=== PATIENT | male | born 1950 | race Caucasian/White ===

== ENCOUNTER 2016-10-21 14:16 | Emergency (ER) | payer BC ==
--- NOTE | 2016-10-21 16:11 | UC ---
Respiratory Complaint HPI - HPI Summary HPI Summary: 66 yo male with productive cough x 1 week myalgias and malaise/fatigue now with bilateral eye redness and lids matted shut in AMs for 1-2 days no f/c no cp, sob - History of Current Complaint Chief Complaint: UCGeneralIllness Stated Complaint: COUGH,SINUSES Time Seen by Provider: 10/21/16 15:57 Hx Obtained From: Patient Onset/Duration: Gradual Onset, Lasting Weeks Timing: Constant Severity Initially: Mild Severity Currently: Moderate Pain Intensity: 2 Pain Scale Used: 0-10 Numeric Character: Cough: Productive Aggravating Factors: Exertion Associated Signs And Symptoms: Positive: Nasal Congestion - Allergies/Home Medications Allergies/Adverse Reactions: Allergies Allergy/AdvReac Type Severity Reaction Status Date / Time No Known Allergies Allergy Verified 10/21/16 14:47 Home Medications: Home Medications Aspirin [Aspirin 81 MG TAB] 81 mg PO DAILY 10/21/16 [History Confirmed 10/21/16] Ferrous Fumarate [Iron] 18 mg PO DAILY 10/21/16 [History Confirmed 10/21/16] Nadolol TAB* [Corgard TAB*] 40 mg PO DAILY 10/21/16 [History Confirmed 10/21/16] Omeprazole CAP* [Prilosec CAP* 20 MG] 20 mg PO DAILY 10/21/16 [History Confirmed 10/21/16] PMH/Surg Hx/FS Hx/Imm Hx Previously Healthy: Yes Cardiovascular History: Other - dysrrhymia Other Cardiovascular History: dysrhymia Respiratory History: Bronchitis - Surgical History Surgical History: Yes Surgery Procedure, Year, and Place: 6 cardiac cath. 5 shoulder surgies - Social History Alcohol Use: Occasionally Substance Use Type: None Smoking Status (MU): Never Smoked Tobacco Review of Systems Constitutional: Fatigue Skin: Negative Eyes: Drainage, Eye Redness ENT: Nasal Discharge Respiratory: Cough Cardiovascular: Negative Gastrointestinal: Negative Genitourinary: Negative Motor: Negative Neurovascular: Negative Musculoskeletal: Myalgia Neurological: Negative Psychological: Negative All Other Systems Reviewed And Are Negative: Yes Physical Exam Triage Information Reviewed: Yes Appearance: Well-Appearing, No Pain Distress, Well-Nourished Vital Signs: Initial Vital Signs Temp 97.3 F 10/21/16 14:42 Pulse 82 10/21/16 14:42 Resp 18 10/21/16 14:42 BP 126/83 10/21/16 14:42 Pulse Ox 95 10/21/16 14:42 Eyes: Positive: Conjunctiva Inflamed, Discharge ENT: Positive: Hearing grossly normal, Nasal drainage. Negative: Nasal congestion, Tonsillar swelling, Tonsillar exudate, Trismus, Muffled/hoarse voice Neck: Positive: Supple, Nontender, No Lymphadenopathy Respiratory: Positive: Lungs clear, Normal breath sounds, No respiratory distress, No accessory muscle use Cardiovascular: Positive: RRR, No Murmur Musculoskeletal: Positive: ROM Intact, No Edema Neurological: Positive: Alert Psychological Exam: Normal Skin Exam: Normal UC Diagnostic Evaluation - Laboratory O2 Sat by Pulse Oximetry: 95 - low normal/not hypoxic - Radiology Xray Interpretation: No Acute Changes Radiology Interpretation Completed By: Radiologist Respiratory Course/Dx - Differential Dx/Diagnosis Provider Diagnoses: acute bronchitis. conjunctivitis (bilateral) Discharge - Discharge Plan Condition: Stable Disposition: HOME Prescriptions: Amoxicillin (*) [Amoxicillin 875 MG (*)] 875 mg PO BID #20 tab Polymyx/Trimethoprim OPTH* [Polytrim OPHTH*] 1 - 2 drop BOTH EYES QID #1 btl Patient Education Materials: Acute Bronchitis (ED), Conjunctivitis (ED) Referrals: Estela SOMMER,Cristino Jaimes [Primary Care Provider] - 4 Days (if not better)
--- NOTE | 2016-10-21 16:45 | RAD ---
INDICATION: Productive cough x1 week COMPARISON: None TECHNIQUE: PA and lateral views of the chest were obtained. FINDINGS: A cardiac device is seen overlying the medial mid-level left chest. The heart and mediastinum are normal in size and contour. The lungs are grossly clear. There is no evidence of large pleural effusion. Visualized bones are normal for the patient's age. There is no radiographic evidence of free air beneath the diaphragm IMPRESSION: No radiographic evidence of acute cardiopulmonary disease.
[2016-10-21 17:01] VITALS: BP 135/96
== END 2016-10-21 17:01 | disposition home or self-care (01) ==
LOC: UCCORT 14:16
DX: J20.9 Acute bronchitis, unspecified (principal); H10.33 Unspecified acute conjunctivitis, bilateral; I49.9 Cardiac arrhythmia, unspecified
CPT/HCPCS: 71020; 99212; G0463

== ENCOUNTER 2017-02-25 12:52 | Emergency (ER) | payer BC ==
[2017-02-25 14:26] VITALS: BP 133/98
--- NOTE | 2017-02-25 15:15 | UC ---
Skin Complaint HPI - HPI Summary HPI Summary: Patient has red, swollen left great toe, small area of draniage around the cuticle - History of Current Complaint Chief Complaint: UCLowerExtremity Time Seen by Provider: 02/25/17 14:58 Stated Complaint: RIGHT BIG TOE PAIN Hx Obtained From: Patient Onset/Duration: Sudden Onset, Lasting Days Skin Exposure Onset/Duration: Days Ago Timing: Constant Onset Severity: Mild Current Severity: Mild Location: Discrete - great toe - Allergy/Home Medications Allergies/Adverse Reactions: Allergies Allergy/AdvReac Type Severity Reaction Status Date / Time No Known Allergies Allergy Verified 02/25/17 14:19 Home Medications: Home Medications Naproxen TAB* [Naprosyn 250 mg TAB*] 1 tab DAILY 02/25/17 [History Confirmed ] Review of Systems Constitutional: Negative Skin: Other - redness Eyes: Negative ENT: Negative Respiratory: Negative Cardiovascular: Negative Gastrointestinal: Negative Genitourinary: Negative Motor: Negative Neurovascular: Negative Musculoskeletal: Negative Neurological: Negative Psychological: Negative Is Patient Immunocompromised?: No All Other Systems Reviewed And Are Negative: Yes PMH/Surg Hx/FS Hx/Imm Hx Previously Healthy: Yes - Surgical History Surgical History: Yes Surgery Procedure, Year, and Place: 6 cardiac cath. 5 shoulder surgies - Family History Known Family History: Positive: Cardiac Disease, Hypertension - Social History Alcohol Use: Daily Alcohol Amount: GLASS OF WINE W/ DINNER Substance Use Type: None Smoking Status (MU): Never Smoked Tobacco - Immunization History Most Recent Influenza Vaccination: 2016 Most Recent Pneumonia Vaccination: 2013 Physical Exam Triage Information Reviewed: Yes Appearance: Well-Appearing, Well-Nourished, Pain Distress Vital Signs: Initial Vital Signs Temp 97.4 F 02/25/17 14:20 Pulse 70 02/25/17 14:20 Resp 16 02/25/17 14:20 BP 133/98 02/25/17 14:20 Pulse Ox 98 02/25/17 14:20 Vital Signs Reviewed: Yes Eye Exam: Normal ENT Exam: Normal Dental Exam: Normal Neck exam: Normal Respiratory Exam: Normal Cardiovascular Exam: Normal Abdominal Exam: Normal Bowel Sounds: Positive: Present Musculoskeletal Exam: Normal Neurological Exam: Normal Psychological Exam: Normal Skin: Positive: Other - mild eyrthem of the right great toe down to the MTP joint Course/Dx - Course Course Of Treatment: hx obtained, exam performed ,med reviewed, treated for cellulitis, - Differential Diagnoses - Skin Complaint Differential Diagnoses: Abscess, Cellulitis - Diagnoses Provider Diagnoses: cellulitis of right great toe Discharge - Discharge Plan Condition: Stable Disposition: HOME Prescriptions: Cephalexin CAP* [Keflex CAP*] 500 mg PO BID #14 cap Patient Education Materials: Cellulitis (ED) Additional Instructions: 1. Take the medication as prescribed. 2. Warm foot soaks daily 3. Follow up with terrazzo helper if not improving due to the ingrown nail
== END 2017-02-25 15:25 | disposition home or self-care (01) ==
LOC: UCCORT 12:52
DX: L03.031 Cellulitis of right toe (principal)
CPT/HCPCS: 99212; G0463

== ENCOUNTER 2017-05-18 15:50 | Emergency (ER) | payer BC ==
[2017-05-18 17:18] VITALS: BP 148/101
--- NOTE | 2017-05-18 17:35 | UC ---
Respiratory Complaint HPI - HPI Summary HPI Summary: Pt c/o generalized malaise, cough X 3 weeks. - History of Current Complaint Chief Complaint: UCRespiratory Stated Complaint: COUGH/FLU LIKE Time Seen by Provider: 05/18/17 17:08 Hx Obtained From: Patient Onset/Duration: Gradual Onset, Lasting Weeks, Still Present, Worse Since - onset Timing: Constant Severity Initially: Mild Severity Currently: Moderate Character: Cough: Nonproductive Aggravating Factors: Exertion, Recumbent Position Alleviating Factors: Nothing Associated Signs And Symptoms: Positive: Chills - Risk Factors Pulmonary Embolism Risk Factors: Negative Cardiac Risk Factors: Hypertension Pseudomonas Risk Factors: Negative Tuberculosis Risk Factors: Negative - Allergies/Home Medications Allergies/Adverse Reactions: Allergies Allergy/AdvReac Type Severity Reaction Status Date / Time No Known Allergies Allergy Verified 05/18/17 17:09 Home Medications: Home Medications Nortriptyline CAP* [Nortriptylline CAP*] 1 cap BEDTIME 05/18/17 [History Confirmed 05/18/17] PMH/Surg Hx/FS Hx/Imm Hx Previously Healthy: Yes Cardiovascular History: Hypertension - Surgical History Surgical History: Yes Surgery Procedure, Year, and Place: 6 cardiac cath. 5 shoulder (4xrotator cuff) - Family History Known Family History: Positive: Cardiac Disease, Hypertension - Social History Occupation: Employed Full-time Lives: With Family Alcohol Use: Daily Alcohol Amount: GLASS OF WINE W/ DINNER Substance Use Type: None Smoking Status (MU): Never Smoked Tobacco Have You Smoked in the Last Year: No - Immunization History Most Recent Influenza Vaccination: 2017 Most Recent Pneumonia Vaccination: 2014 Review of Systems Constitutional: Chills, Fatigue Skin: Negative Eyes: Negative ENT: Negative Respiratory: Cough Cardiovascular: Negative Gastrointestinal: Negative Genitourinary: Negative Motor: Negative Neurovascular: Negative Musculoskeletal: Negative Neurological: Negative Psychological: Negative Is Patient Immunocompromised?: No All Other Systems Reviewed And Are Negative: Yes Physical Exam Triage Information Reviewed: Yes Appearance: Ill-Appearing Vital Signs: Initial Vital Signs Temp 99.2 F 05/18/17 17:12 Pulse 79 05/18/17 17:12 Resp 28 05/18/17 17:12 BP 148/101 05/18/17 17:12 Pulse Ox 99 05/18/17 17:12 Vital Signs Reviewed: Yes Eye Exam: Normal ENT Exam: Normal Dental Exam: Normal Neck exam: Normal Respiratory Exam: Other Respiratory: Positive: Decreased breath sounds Cardiovascular Exam: Normal Musculoskeletal Exam: Normal Neurological Exam: Normal Psychological Exam: Normal Skin Exam: Normal UC Diagnostic Evaluation - Laboratory O2 Sat by Pulse Oximetry: 99 Respiratory Course/Dx - Differential Dx/Diagnosis Differential Diagnosis/HQI/PQRI: Bronchitis, Influenza Provider Diagnoses: Bronchitis Discharge - Discharge Plan Condition: Stable Disposition: HOME Prescriptions: Benzonatate CAP* [Tessalon 100 MG CAP*] 100 mg PO Q8H PRN #30 cap PRN Reason: Cough DOXYcycline CAP(*) [DOXYcycline 100MG CAP(*)] 100 mg PO Q12H #20 cap methylPREDNISolone TAB* [Medrol TAB*] 4 - 8 mg PO .SEE JUAREZ #1 juarez Patient Education Materials: Acute Bronchitis (ED) Referrals: Estela SOMMER,Cristino Jaimes [Primary Care Provider] - If Needed
== END 2017-05-18 17:46 | disposition home or self-care (01) ==
LOC: UCCORT 15:50
DX: J40 Bronchitis, not specified as acute or chronic (principal); I10 Essential (primary) hypertension
CPT/HCPCS: 87502; 99212; G0463

== ENCOUNTER 2017-06-21 08:39 | Emergency (ER) | payer BC ==
--- OUTSIDE RECORDS SUMMARY | 2017-06-21 08:56 | XMS REPORT ---
:1950 External Reference #:[id number] Author Organization [employer] Address [address] [address] Phone [phone] Care Team Providers Name Role Phone Arabella Palmer H., MD Primary Care Physician Unavailable Payers Type Date Identification Numbers Payment Provider Subscriber Health Maintenance Policy Number: Medicare Blue Ppo [facility] (O) [id number] Group Number: [id number] [address] PayID: [id number] PRAVEENA Orozco [address] Problems Description No Information Family History Date Family Member(s) Problem(s) Comments General Cancer Social History Type Date Description Comments Marital Status Lives With Spouse Occupation [employer] Cigarette Use Never Smoked Cigarettes ETOH Use Occasionally consumes wine Smoking Patient has never smoked Recreational Drug Use Denies Drug Use Daily Caffeine Consumes on average 1 cup of regular coffee per day Exercise Type/Frequency Exercises sporadically Allergies, Adverse Reactions, Alerts Date Description Reaction Status Severity Comments 05/25/2013 NKDA active Medications Medication Date Status Form Strength Qnty SIG Indications Ordering Provider Right Knee 02/28/ Active unload 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 [facility] [place], Fabiola Varus DJD compartment Omeprazole / Active Capsules 10mg 1 po qd Unknown 0000 DR Aspirin Ec Low / Active Tablets DR 81mg 1 by mouth Unknown Dose 0000 every day Iron 00/00/ Active Tablets every day Unknown 0000 Nadolol / Active Tablets 20mg Al-Mudamg 0000 Shae evans MD Nortriptyline / Active Capsules 25mg Unknown HCL 0000 Cephalexin / Active Capsules 500mg Unknown 0000 Naproxen Sodium / Hx Tablets 220mg 1-2 po bid Unknown 0000 - prn 2014 Flecainide / Hx Tablets 100mg 1 po bid Unknown Acetate - 2014 Medications Administered in Office Medication Date Status Form Strength Qnty SIG Indications Ordering Provider Celestone 3 mg Administered Injection Barrie Brooke and 3mg 017 MD [place] Depomedrol Administered Injection Wale 40MG 016 [place] Gonsalez Depomedrol Administered Injection Wale 80MG 015 Mich Gonsalez Depomedrol Administered Injection Wale 80MG 014 [place] Gonsalez Depomedrol Administered Injection Wale 80MG 014 [place] Gonsalez Vital Signs Date Vital Result Comment 05/31/2017 Height 70 inches 5'10" Weight 196.00 lb Heart Rate 72 /min BP Systolic Sitting 124 mmHg BP Diastolic Sitting 82 mmHg Respiratory Rate 12 /min Pain Level 4 BMI (Body Mass Index) 28.1 kg/m2 02/28/2017 Height 70 inches 5'10" Weight 195.00 lb Heart Rate 74 /min BP Systolic 116 mmHg BP Diastolic 80 mmHg Respiratory Rate 16 /min Pain Level 0 when not using BMI (Body Mass Index) 28.0 kg/m2 01/28/2015 Weight 190.00 lb Heart Rate 76 /min BP Systolic Sitting 122 mmHg BP Diastolic Sitting 80 mmHg 02/19/2014 Height 70 inches 5'10" Weight 190.00 lb Heart Rate 80 /min BP Systolic Sitting 110 mmHg BP Diastolic Sitting 72 mmHg BMI (Body Mass Index) 27.3 kg/m2 06/12/2013 Height 70 inches 5'10" Weight 195.00 lb BP Systolic 126 mmHg BP Diastolic 84 mmHg BMI (Body Mass Index) 28.0 kg/m2 05/25/2013 Height 70 inches 5'10" Weight 195.00 lb Heart Rate 69 /min BP Systolic 136 mmHg BP Diastolic 80 mmHg BMI (Body Mass Index) 28.0 kg/m2 Results Description No Information Procedures Date CPT Code Description Status 02/28/2017 95268 Xray Knee 3 Views Completed 02/28/2017 Inject/Drain Joint/Bursa Major Completed 10/14/2015 Inject/Drain Joint/Bursa Major Completed 01/28/2015 Inject/Drain Joint/Bursa Major Completed 02/19/2014 Inject/Drain Joint/Bursa Major Completed 05/25/2013 38113 Rad Exam; Ankle Comp Completed 05/25/2013 00934 Rad Exam; Both Knees, Standing Ap Completed 05/25/2013 Inject/Drain Joint/Bursa Major Completed Encounters Type Date Location Provider CPT E/M Dx Office Visit 05/31/2017 [facility] [place] [address] M17.11 11:15a [facility] Office Visit 02/28/2017 [facility] [place] [address] M17.11 1:30p [facility] M25.561 Office Visit 06/12/2013 9:45a [facility] [address] 726.72 [facility] [place] 715.96 Office Visit 05/25/2013 10:45a [facility], [address] 715.96 [facility] [place] 726.72 Plan of Care Future Appointment(s):06/21/2017 8:30 am - Barrie Arnold MD at [facility]/30/2018 - [facility], MDM17.11 Unilateral primary osteoarthritis, right kneeFollow up:Follow up: 3-4 weeks for injection
--- OUTSIDE RECORDS SUMMARY | 2017-06-21 08:56 | XMS REPORT ---
:1950 External Reference #:[id number] Author Organization [employer] Address [address] [address] Phone [phone] Care Team Providers Name Role Phone Arabella Palmer H., MD Primary Care Physician Unavailable Payers Type Date Identification Numbers Payment Provider Subscriber Health Maintenance Policy Number: Medicare Blue Ppo Garth Gaviria [facility] Organization (HMO) [id number] Group Number: [id number] [address] PayID: [id number] [place] [address] Problems Description No Information Family History Date [...] Knee 02/28/ Active unload 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[employer] [place], Fabiola Varus SHAYLA compartment Omeprazole / Active Capsules 10mg 1 po qd Unknown 0000 DR Aspirin Ec Low / Active Tablets DR 81mg 1 by mouth Unknown Dose 0000 every day Iron 00/00/ Active Tablets every day Unknown 0000 Nadolol / Active Tablets 20mg 1 tab by Al-Mudamg 0000 mouth daily Shae evans MD Nortriptyline / Active Capsules 25mg one tab by Unknown HCL 0000 mouth at night Naproxen Sodium / Hx Tablets 220mg 1-2 po bid Unknown 0000 - prn 2014 Flecainide / Hx Tablets 100mg 1 po bid Unknown Acetate - 2014 Cephalexin / Hx Capsules 500mg Unknown 0000 - 2017 Celestone 3 mg 00// Active Injection Barrie Brooke and 3mg 0000 MD [place] Medications Administered in Office Medication Date Status Form Strength Qnty SIG Indications Ordering Provider Celestone 3 mg Administered Injection Barrie M and 3mg 017 MD [place] Depomedrol Administered Injection Wale 40MG 016 [place] Gonsalez Depomedrol Administered Injection Wale 80MG 015 [place] Depomedrol Administered Injection Wale 80MG 014 [place]ons[place] Depomedrol Administered Injection Wale 80MG 014 [place] Gonsalez Vital Signs Date Vital Result Comment 06/21/2017 Height 70 inches 5'10" Weight 195.00 lb Heart Rate 90 /min BP Systolic Sitting 128 mmHg BP Diastolic Sitting 82 mmHg Respiratory Rate 18 /min Pain Level 2 BMI (Body Mass Index) 28.0 kg/m2 05/31/2017 Height 70 inches 5'10" Weight 196.00 [...] Information Procedures Date CPT Code Description Status 06/21/2017 Inject/Drain Joint/Bursa Major Completed 02/28/2017 88106 Xray Knee 3 Views Completed 02/28/2017 Inject/Drain Joint/Bursa Major Completed 10/14/2015 Inject/Drain Joint/Bursa Major Completed 01/28/2015 Inject/Drain Joint/Bursa Major Completed 02/19/2014 Inject/Drain Joint/Bursa Major Completed 05/25/2013 18845 Rad Exam; Ankle Comp Completed 05/25/2013 33380 Rad Exam; Both Knees, Standing Ap Completed 05/25/2013 Inject/Drain Joint/Bursa Major Completed Encounters Type Date Location Provider CPT E/M Dx Office Visit 05/31/2017 [facility] [place] [address] M17.11 11:15a [facility] [place] Office Visit 02/28/2017 [facility] [place] [address] M17.11 1:30p [facility] [place] M25.561 Office Visit 06/12/2013 9:45a [facility] [address] 726.72 [facility] [place] 715.96 Office Visit 05/25/2013 10:45a [facility], [address] 715.96 [facility] [place] 726.72 Plan of Care 06/21/2017 - Barrie Arnold, MDM17.11 Unilateral primary osteoarthritis, right kneeFollow up:Follow up: As needed
--- OUTSIDE RECORDS SUMMARY | 2017-06-21 08:57 | XMS REPORT ---
:1950 External Reference #:[id number] Author Organization [facility] Address [address] [address] Phone [phone] Care Team Providers Name Role Phone Cristino Palmer MD Primary Care Physician Unavailable Payers Type Date Identification Numbers Payment Provider Subscriber Commercial Effective: Policy Number: BCBS Medicare Corey Hernandez 2016 [id number] Group Number: [id number] [address] [address] PayID: [id number] PRAVEENA Orozco [id number] Problems Date Description Provider Status Onset: 01/27/2000 Paroxysmal supraventricular Arabella Palmer MD Active tachycardia Family History Date Family Member(s) Problem(s) Comments Father due to age 73 esophogeal ca () Mother due to age 64 sarcoidosis () Siblings Siblings:2 brothers and a sister , one brother has lupus Social History Type Date Description Comments Cigarette Use Never Smoked Cigarettes ETOH Use Occasionally consumes alcohol Daily Caffeine Consumes on average 1 cup of coffee per day Allergies, Adverse Reactions, Alerts Date Description Reaction Status Severity Comments 01/22/2003 NKDA active Medications Medication Date Status Form Strength Qnty SIG Indications Ordering Provider Auto Cpap 02/14 Active Device 1unit [id number] G47.33 s with Heidi A, humidifier [employer] and supplies. mg:99mos please provide modem and tag us Sildenafil 05/25 Active Tablets 20mg 30tab Take 3 F52.21 Estela s Tablets By Cristino Mouth as Directed Nadolol 11/20 Active Tablets 20mg 30tab one by Estela s mouth once Cristino, a day Nortriptyline 11/20 Active Capsules 25mg 180ca take 2 G43.909 Jani ps capsules by dario Gregg at bedtime Prilosec 05/[address] 20mg 1 by mouth Estela every day MD Cristino Aspirin Ec Active Tablets DR 81mg 1 by mouth Unknown every day Benadryl Active Capsules 25mg one tablet Unknown twice daily as needed Ferrous Sulfate Active Tablets ER 50mg Unknown ER Prednisone 04/18 Hx Tablets 10mg 30tab 1 qid for 3 R0Antonieta Palmer s day, 1 po Cristino, - tid for 3 MD 04/30 day 1 po bid for 3 day, 1 po po for 3 day Benzonatate 04/18 Hx Capsules 200mg 20cap 1 by mouth [facility] Estela s twice a day Cristino, - as needed 04/28 cough Fluticasone 04/18 Hx Suspension 50mcg/Act 1unit 1 spray in [facility] Estela , s each Cristino, - nostril 05/18 twice a day /2017 Tylenol With 04/01 Hx Tablets 300-30mg 15tab 1 or 2 by [facility] Estela, Codeine # s mouth q6hr Cristino, - as needed 04/18 cough Benzonatate 04/01 Hx Capsules 200mg 20cap 1 by mouth Antonieta Palmer, s twice a day Cristino, - as needed 04/11 cough Azithromycin 03/07 Hx Tablets 250mg 6tabs 2 by mouth J20.9 Estela, today then Cristino, - 1 by mouth 03/12 every day /2014 Prednisone 03/07 Hx Tablets 10mg 30tab 1 qid for 3 J20.9 Estela, s day, 1 po Cristino, - tid for 3 03/19 day 1 po bid for 3 day, 1 po po for 3 day Prednisone 08/30 Hx Tablets 10mg 30tab 1 qid for 3 786.2 s day, 1 po Cristino, - tid for 3 09/11 day 1 po bid for 3 day, 1 po po for 3 day Benzonatate 08/30 Hx Capsules 200mg 20cap 1 by mouth 786.2 s twice a day Cristino, - as needed 09/09 Naprosyn 05/14 Hx Tablets 250mg 1 po 3 Estela times a day Cristino, - 08/29 Itraconazole 1%, 05/14 Hx Compound 240cc apply ast Estela, In Dsmo directed Cristino, 1%,Ketoconazole - daily 2% 05/18 Diflucan 10/14 Hx Tablets 150mg 1tabs one tab po Estela times one Cristino, - day 01/17 Amoxicillin/Clav 08/06 Hx 875mg 20uni 1 PO bid 461.0 Estela ts WM , Be Arabella, Potassium - Sure To 08/07 Activia Yogurt Daily While On Meds Meclizine HCL 03/24 Hx Tablets 25mg 30tab 1 po q8hr Estela s prn Cristino, - 04/23 Flecainide 03/04 Hx Tablets 100mg 1 po bid Nasim Palmer Cristino, - 10/30 Flecainide 03/03 Hx Tablets 50mg 1 PO bid Nasim Palmer Cristino, - 03/04 Antivert 12/17 Hx Tablets 25mg 20tab 1 Q8 HRS Estela s prn Cristino, - Dizziness 12/27 Elocon 10/26 Hx Cream 0.1% 15gm apply as 702.0 Estela directed Cristino, - bid 04/15 Tenormin 08/30 Hx Tablets 25mg 30tab 1 po qd Estela s Cristino - 01/30 Gym Excuse 08/05 Hx Na Na no gym for Estela 1 wk Or Arabella, - Track 08/06 Tylenol W/ 08/05 Hx Tablets 300mg;30 20tab 1-2 q4-6 465.9 Anail Palmer #3 mg s hours prn Arabella, - with small 08/06 Guaifenesin 08/05 Hx Tablets 600mg;120 20tab 1 PO bid 465.9 Estela, & mg s prn Arabella Pseudoephedrine - Congestion; MD Moyer 08/06 Only Once Daily In Daytime If Causes Problems Sleeping Naproxen 08/05 Hx Tablets 500mg 50tab 1 PO bid 465.9 Estela, s prn With Arabella - Food 08/06 Viagra 10/12 Hx Tablets 100mg 6tabs Take 1 Tablet By Cristino, - Mouth If 08/29 Viagra 01/19 Hx Tabs 50mg 10tab 1 po prn Estela s Cristino, Roderick SOMMER 12/31 Lanoxin 01/30 Hx .25mg 30uni 1 po qd Estela ts Roderick Gregg MD 10/26 Tenormin 01/30 Hx Tablets 50mg 90tab 1 tablet Estela s once daily Cristino, - 08/30 Efudex 01/30 Hx 15gm Apply To Affected Roderick Gregg Skin qd as 04/15 Immunizations CPT Code Status Date Vaccine Lot # [id number] Given 05/20/2015 Prevnar 13 Pneumococal Conjugate Vaccine [id number] 66029 Given 02/17/2015 Pneumococcal 23 Immunization Adult Or Immunosuppressed Patient 30573 Given 02/17/2015 Influenza Vac, 3 Yrs & Older, Quadrivalent, Split, Im Use [id number] Given 02/17/2014 Fluvirin Immunization Q2035 Given 02/13/2013 Afluria Imunization 97141 Given 04/02/2010 Zoster (Zostavax) [id number] 48662 Given 03/04/2010 Afluria Or Fluvirin Flu Vac Intramuscular [id number] 68760 Given 04/08/2009 Afluria Or Fluvirin Flu Vac Intramuscular [id number] 19325 Given 03/01/2008 Afluria Or Fluvirin Flu Vac Intramuscular [id number] 69295 Given 02/22/2007 Afluria Or Fluvirin Flu Vac Intramuscular [id number] 43883 Given 03/03/2006 Afluria Or Fluvirin Flu Vac Intramuscular 40382 Given 03/03/2006 Afluria Or Fluvirin Flu Vac Intramuscular [id number] 72436 Given 03/03/2006 Afluria Or Fluvirin Flu Vac Intramuscular 11693 Given 02/02/2005 Afluria Or Fluvirin Flu Vac Intramuscular 90063 Given 07/08/2004 Immunization Td 7 Yrs Or Older 65159 Given 01/24/2004 Afluria Or Fluvirin Flu Vac Intramuscular 48206 Given 01/22/2003 Influenza Virus Vaccine, Whole Virus, Intramuscular Or Jet Inj. 85370 Given 02/24/2001 Afluria Or Fluvirin Flu Vac Intramuscular 88838 Given Unknown Influenza Vaccine Quadrivalent Preser/Antibiotic Free Im Use Vital Signs Date Vital Result Comment 05/20/2017 Weight 209.00 lb BP Systolic 122 mmHg BP Diastolic 84 mmHg Height 70 inches 5'10" BMI (Body Mass Index) 30.0 kg/m2 05/19/2017 Body Temperature 97.0 F Weight 210.00 lb Heart Rate 83 /min BP Systolic 144 mmHg BP Diastolic 84 mmHg Height 70 inches 5'10" O2 % BldC Oximetry 95 % BMI (Body Mass Index) 30.1 kg/m2 01/05/2017 Body Temperature 98.3 F Weight 205.00 lb Heart Rate 75 /min BP Systolic 132 mmHg BP Diastolic 86 mmHg Height 70 inches 5'10" O2 % BldC Oximetry 93 % BMI (Body Mass Index) 29.4 kg/m2 08/30/2016 Body Temperature 98.2 F Weight 205.00 lb Heart Rate 94 /min BP Systolic 138 mmHg BP Diastolic 84 mmHg Height 70 inches 5'10" O2 % BldC Oximetry 95 % BMI (Body Mass Index) 29.4 kg/m2 06/09/2016 Body Temperature 97.9 F Weight 206.00 lb Heart Rate 107 /min BP Systolic 138 mmHg BP Diastolic 80 mmHg Height 70 inches 5'10" O2 % BldC Oximetry 95 % BMI (Body Mass Index) 29.6 kg/m2 05/25/2016 Weight 192.00 lb BP Systolic 130 mmHg BP Diastolic 98 mmHg Height 70 inches 5'10" BMI (Body Mass Index) 27.5 kg/m2 11/21/2015 Body Temperature 97.0 F Weight 206.00 lb Heart Rate 80 /min BP Systolic 112 mmHg BP Diastolic 84 mmHg Height 70 inches 5'10" BMI (Body Mass Index) 29.6 kg/m2 05/20/2015 Weight 198.00 lb BP Systolic 120 mmHg BP Diastolic 82 mmHg Height 70 inches 5'10" BMI (Body Mass Index) 28.4 kg/m2 04/18/2015 Weight 203.00 lb BP Systolic 122 mmHg BP Diastolic 84 mmHg Height 70 inches 5'10" BMI (Body Mass Index) 29.1 kg/m2 04/01/2015 Weight 203.00 lb BP Systolic 112 mmHg BP Diastolic 80 mmHg Height 70 inches 5'10" BMI (Body Mass Index) 29.1 kg/m2 03/07/2015 Weight 203.00 lb BP Systolic 114 mmHg BP Diastolic 78 mmHg Height 70 inches 5'10" BMI (Body Mass Index) 29.1 kg/m2 08/30/2014 Weight 203.00 lb BP Systolic 124 mmHg BP Diastolic 90 mmHg Height 70 inches 5'10" BMI (Body Mass Index) 29.1 kg/m2 05/14/2014 Weight 189.00 lb BP Systolic 124 mmHg BP Diastolic 92 mmHg Height 70 inches 5'10" BMI (Body Mass Index) 27.1 kg/m2 Urine Dipstick - Blood NEG Urine Dipstick - Protein NEG Urine Dipstick - Glucose NEG 04/20/2013 Weight 198.00 lb BP Systolic 120 mmHg BP Diastolic 82 mmHg Height 70 inches 5'10" BMI (Body Mass Index) 28.4 kg/m2 Urine Dipstick - Blood NEG Urine Dipstick - Protein NEG Urine Dipstick - Glucose NEG 04/12/2012 Weight 194.00 lb BP Systolic 110 mmHg BP Diastolic 74 mmHg Height 70 inches 5'10" BMI (Body Mass Index) 27.8 kg/m2 Urine Dipstick - Blood NEGATIVE Urine Dipstick - Protein NEGATIVE Urine Dipstick - Glucose NEGATIVE 04/15/2011 Body Temperature 97.7 F Weight 187.00 lb Heart Rate 80 /min BP Systolic 130 mmHg BP Diastolic 84 mmHg Height 70 inches 5'10" O2 % BldC Oximetry 94 % BMI (Body Mass Index) 26.8 kg/m2 04/06/2011 Weight 194.00 lb BP Systolic 132 mmHg BP Diastolic 84 mmHg Height 68.5 inches 5'8.50" BMI (Body Mass Index) 29.1 kg/m2 Urine Dipstick - Blood NEGATIVE Urine Dipstick - Protein NEGATIVE Urine Dipstick - Glucose NEGATIVE 03/04/2010 Weight 185.00 lb BP Systolic 118 mmHg BP Diastolic 82 mmHg Height 68.5 inches 5'8.50" BMI (Body Mass Index) 27.7 kg/m2 Urine Dipstick - Blood NEGATIVE Urine Dipstick - Protein NEGATIVE Urine Dipstick - Glucose NEGATIVE 03/03/2009 Weight 186.00 lb BP Systolic 120 mmHg BP Diastolic 82 mmHg Urine Dipstick - Blood NEGATIVE Urine Dipstick - Protein NEGATIVE Urine Dipstick - Glucose NEGATIVE 04/23/2008 Weight 189.00 lb BP Systolic 110 mmHg BP Diastolic 84 mmHg Height 68.75 inches 5'8.75" BMI (Body Mass Index) 28.1 kg/m2 Urine Dipstick - Blood NEGATIVE Urine Dipstick - Protein NEGATIVE Urine Dipstick - Glucose NEGATIVE 03/01/2008 Weight 191.00 lb BP Systolic 120 mmHg BP Diastolic 84 mmHg Height 68.75 inches 5'8.75" BMI (Body Mass Index) 28.4 kg/m2 Urine Dipstick - Blood NEGATIVE Urine Dipstick - Protein NEGATIVE Urine Dipstick - Glucose NEGATIVE 02/22/2007 Weight 186.00 lb BP Systolic 116 mmHg BP Diastolic 84 mmHg Height 69 inches 5'9" BMI (Body Mass Index) 27.5 kg/m2 Urine Dipstick - Blood NEGATIVE Urine Dipstick - Protein NEGATIVE Urine Dipstick - Glucose NEGATIVE 10/26/2006 BP Systolic 110 mmHg BP Diastolic 64 mmHg Height 69.25 inches 5'9.25" 08/30/2006 BP Systolic 112 mmHg BP Diastolic 70 mmHg Height 69.25 inches 5'9.25" 05/17/2006 BP Systolic 140 mmHg LG Cuff BP Diastolic 78 mmHg LG Cuff Height 69.25 inches 5'9.25" 02/21/2006 Weight 196.00 lb BP Systolic 114 mmHg BP Diastolic 80 mmHg Height 69.25 inches 5'9.25" BMI (Body Mass Index) 28.7 kg/m2 Urine Dipstick - Blood NEGATIVE Urine Dipstick - Protein NEGATIVE Urine Dipstick - Glucose NEGATIVE 08/05/2005 Body Temperature 97.3 F Height 68.5 inches 5'8.50" 02/02/2005 Weight 175.00 lb Height 68.5 inches 5'8.50" BMI (Body Mass Index) 26.2 kg/m2 Urine Dipstick - Blood NEGATIVE Urine Dipstick - Protein NEGATIVE Urine Dipstick - Glucose NEGATIVE 07/08/2004 Weight 177.00 lb BP Systolic 100 mmHg BP Diastolic 64 mmHg Height 68.5 inches 5'8.50" BMI (Body Mass Index) 26.5 kg/m2 Urine Dipstick - Blood NEGATIVE Urine Dipstick - Protein NEGATIVE Urine Dipstick - Glucose NEGATIVE 01/24/2004 Weight 171.00 lb BP Systolic 100 mmHg BP Diastolic 70 mmHg Height 69 inches 5'9" BMI (Body Mass Index) 25.2 kg/m2 Urine Dipstick - Blood NEGATIVE Urine Dipstick - Protein NEGATIVE Urine Dipstick - Glucose NEGATIVE 01/22/2003 Weight 174.00 lb BP Systolic 90 mmHg BP Diastolic 60 mmHg Height 69 inches 5'9" BMI (Body Mass Index) 25.7 kg/m2 Urine Dipstick - Blood NEGATIVE Urine Dipstick - Protein NEGATIVE Urine Dipstick - Glucose NEGATIVE 10/12/2002 BP Systolic 100 mmHg BP Diastolic 70 mmHg 01/19/2002 Weight 182.25 lb BP Systolic 100 mmHg BP Diastolic 70 mmHg Height 70 inches 5'10" BMI (Body Mass Index) 26.2 kg/m2 01/30/2001 Weight 183.00 lb BP Systolic 98 mmHg BP Diastolic 64 mmHg Height 71 inches 5'11" BMI (Body Mass Index) 25.5 kg/m2 Urine Dipstick - Blood NEGATIVE Urine Dipstick - Protein NEGATIVE Urine Dipstick - Glucose NEGATIVE Results Test Date Test Result H/L Range Note Comprehensive Metabolic (CMP) 05/25/2016 Sodium 142 mmol/L 134-142 Potassium 4.2 mmol/L 3.5-5.2 Chloride 103 mmol/L 97-109 Carbon Dioxide 35 mmol/L High 24-34 Glucose 94 mg/dL 70-105 BUN 14 mg/dL 6-26 Creatinine 1.0 mg/dL 0.5-1.4 Calcium 9.4 mg/dL 8.5-10.2 Total Protein 6.9 g/dL 6.0-8.0 Albumin 4.5 g/dL 3.6-4.9 Globulin 2.4 g/dL 2.0-3.5 A/G Ratio 1.9 Ratio 1.0-2.2 Total Bilirubin 1.6 mg/dL High 0.1-1.3 Alkaline Phosphatase 67 U/L 24-140 Alt 54 U/L High 3-42 Ast 30 U/L 8-42 Anion Gap 8 mmol/L 6-14 Nikia Egfr >60 >60 1 Non Nikia Egfr >60 >60 2 Lipid 05/25/2016 Cholesterol 200 mg/dL High 50-199 Triglycerides 131 mg/dL 30-200 HDL 43 mg/dL 29-71 3 Chol/ HDL Ratio 4.7 ratio 4.0-6.7 VLDL 26 mg/dL 2-29 LDL (Calc) 131 mg/dL High 20-99 4 Laboratory test finding 05/25/2016 PSA 1.310 ng/mL 0.000-4.000 5 Comprehensive Metabolic (CMP) 11/21/2015 Sodium 142 mmol/L 134-142 Potassium 3.9 mmol/L 3.5-5.2 Chloride 105 mmol/L 97-109 Carbon Dioxide 31 mmol/L 24-34 Glucose 91 mg/dL 70-105 BUN 21 mg/dL 6-26 Creatinine 1.0 mg/dL 0.5-1.4 Calcium 9.2 mg/dL 8.5-10.2 Total Protein 6.2 g/dL 6.0-8.0 Albumin 4.2 g/dL 3.6-4.9 Globulin 2.0 g/dL 2.0-3.5 A/G Ratio 2.1 Ratio 1.0-2.2 Total Bilirubin 1.5 mg/dL High 0.1-1.3 Alkaline Phosphatase 62 U/L 24-140 Alt 29 U/L 3-42 Ast 18 U/L 8-42 Anion Gap 10 mmol/L 6-14 Nikia Egfr >60 >60 6 Non Nikia Egfr >60 >60 7 Lipid 11/21/2015 Cholesterol 170 mg/dL 50-199 Triglycerides 75 mg/dL 30-200 HDL 38 mg/dL 29-71 8 Chol/ HDL Ratio 4.5 ratio 4.0-6.7 VLDL 15 mg/dL 2-29 LDL (Calc) 117 mg/dL High 20-99 9 Laboratory test finding 05/20/2015 PSA 1.350 ng/mL 0.000-4.000 10 Comprehensive Metabolic (CMP) 05/20/2015 Sodium 140 mmol/L 134-142 Potassium 3.8 mmol/L 3.5-5.2 Chloride 102 mmol/L 97-109 Carbon Dioxide 31 mmol/L 24-34 Glucose 92 mg/dL 70-105 BUN 13 mg/dL 6-26 Creatinine 1.0 mg/dL 0.5-1.4 Calcium 9.4 mg/dL 8.5-10.2 Total Protein 6.5 g/dL 6.0-8.0 Albumin 4.4 g/dL 3.6-4.9 Globulin 2.1 g/dL 2.0-3.5 A/G Ratio 2.1 Ratio 1.0-2.2 Total Bilirubin 1.2 mg/dL 0.1-1.3 Alkaline Phosphatase 59 U/L 24-140 Alt 37 U/L 3-42 Ast 21 U/L 8-42 Anion Gap 11 mmol/L 6-14 Nikia Egfr >60 >60 11 Non Nikia Egfr >60 >60 12 Lipid 05/20/2015 Cholesterol 195 mg/dL 50-199 Triglycerides 107 mg/dL 30-200 HDL 44 mg/dL 29-71 13 Chol/ HDL Ratio 4.4 ratio 4.0-6.7 VLDL 21 mg/dL 2-29 LDL (Calc) 130 mg/dL High 20-99 14 CBC With Auto Diff 05/20/2015 WBC 3.3 K/uL Low 4.1-11.0 RBC 4.64 M/uL 4.60-6.10 Hemoglobin 15.8 gm/dL 13.5-18.0 Hematocrit 47.0 % 41.0-53.0 MCV 101.3 fL High 80.0-97.0 MCH 34.0 pg High 27.0-32.0 MCHC 33.5 g/dL 32.0-36.0 RDW 13.2 % 11.5-14.5 PLT Count 157 K/ul 140-400 Manual Differential 05/20/2015 Neutrophils 43 % 35-75 Band 1 % 0-11 Lymphocytes 40 % 16-52 Monocytes 14 % High 0-8 Eosinophils 2 % 0-5 Basophils 0 % 0-4 Platelet Estimate Normal Normal RBC Morphology Normal Normal Macrocytosis 1+ None Seen Abs Neutrophils# 1.4 K/ul Low 1.8-7.7 Abs Lymphocytes# 1.3 K/ul 1.2-4.8 Abs Monocytes# 0.5 K/ul 0.0-0.8 Abs Eosinophils# 0.1 K/ul 0.0-0.5 Abs Basophils# 0.0 K/ul 0.0-0.3 Abs BandCells# 0.0 K/ul 0.0-1.2 Lipid 05/14/2014 Cholesterol 198 mg/dL 50-199 15 Triglycerides 96 mg/dL 30-200 15 HDL 53 mg/dL 29-71 15, 16 Chol/ HDL Ratio 3.7 ratio Low 4.0-6.7 15 VLDL 19 mg/dL 2-29 15 LDL (Calc) 126 mg/dL High 20-99 15, 17 Comprehensive Metabolic ([facility]) 05/14/2014 Sodium 141 mmol/L 134-142 15 Potassium 4.0 mmol/L 3.5-5.2 15 Chloride 101 mmol/L 97-109 15 Carbon Dioxide 31 mmol/L 24-34 15 Glucose 86 mg/dL 70-105 15 BUN 23 mg/dL 6-26 15 Creatinine 0.9 mg/dL 0.5-1.4 15 Calcium 9.5 mg/dL 8.5-10.2 15 Total Protein 6.8 g/dL 6.0-8.0 15 Albumin 4.7 g/dL 3.6-4.9 15 Globulin 2.1 g/dL 2.0-3.5 15 A/G Ratio 2.2 Ratio 1.0-2.2 15 Total Bilirubin 1.2 mg/dL 0.1-1.3 15 Alkaline Phosphatase 55 U/L 24-140 15 Alt 24 U/L 3-42 15 Ast 20 U/L 8-42 15 Anion Gap 13 mmol/L 6-14 15 Nikia Egfr >60 >60 15, 18 Non Nikia Egfr >60 >60 15, 19 Laboratory test finding 05/14/2014 PSA 1.780 ng/mL 0.000-4.000 15, 20 Total Testosterone Adult Male 241 ng/dL Low 285-650 15 Comprehensive Metabolic ([facility]) 04/20/2013 Sodium 141 mmol/L 134-142 Potassium 4.3 mmol/L 3.5-5.2 Chloride 105 mmol/L 97-109 Carbon Dioxide 30 mmol/L 24-34 Glucose 92 mg/dL 70-105 BUN 19 mg/dL 6-26 Creatinine 0.9 mg/dL 0.5-1.4 Calcium 9.2 mg/dL 8.5-10.2 Total Protein 6.6 g/dL 6.0-8.0 Albumin 4.6 g/dL 3.6-4.9 Globulin 2.0 g/dL 2.0-3.5 A/G Ratio 2.3 Ratio High 1.0-2.2 Total Bilirubin 1.0 mg/dL 0.1-1.3 Alkaline Phosphatase 63 U/L 24-140 Alt 25 U/L 3-42 Ast 20 U/L 8-42 Anion Gap 10 mmol/L 6-14 Nikia Egfr >60 >60 21 Non Nikia Egfr >60 >60 22 Lipid 04/20/2013 Cholesterol 200 mg/dL High 50-199 Triglycerides 100 mg/dL 30-200 HDL 47 mg/dL 29-71 23 Chol/ HDL Ratio 4.3 ratio 4.0-6.7 VLDL 20 mg/dL 2-29 LDL (Calc) 133 mg/dL High 20-99 24 Laboratory test finding 04/20/2013 Hepatitis C AB NEGATIVE (Neg) 25 Liver Function Tests 03/05/2013 Total Protein 6.9 g/dL 6.3-8.0 Albumin 4.1 g/dL 3.5-5.0 Globulin 2.8 g/dL 1.9-4.3 Alb/Glob 1.5 ratio Bilirubin,Total 1.1 mg/dL 0.2-1.2 Bilirubin,Direct 0.2 mg/dL 0.1-0.4 Bilirubin,Indirect 0.9 mg/dL 0.0-0.9 Sgot/Ast 18 U/L 16-40 SGPT/Alt 32 U/L 30-65 Alkaline Phosphatase 81 U/L 50-136 Basic Metabolic Panel 03/05/2013 Glucose 83 mg/dL 76-115 BUN 15 mg/dL 5-23 Creatinine 1.1 mg/dL 0.5-1.4 Glom Filtration Rate, Estimate >60 mL/min >60 If >60 mL/min >60 26 BUN/Creat 13.6 ratio Sodium 141 mmol/L 136-145 Potassium 3.7 mmol/L 3.5-5.1 Chloride 106 mmol/L 98-107 Carbon Dioxide 31 mEq/L High 18-29 Anion Gap 8 mEq/L 8-16 Calcium 8.6 mg/dL 8.5-10.1 CBC W/Automated Diff 03/05/2013 White Blood Count 4.3 K/uL 3.4-10.5 Red Blood Count 4.25 M/uL 4.20-5.80 Hemoglobin 12.3 gm/dL Low 12.8-17.0 Hematocrit 39.1 % 38.0-48.0 Mean Cell Volume 92.0 fl 80.0-96.0 Mean Corpuscular HGB 28.9 pg 27.0-33.0 Mean Corpuscular HGB Conc 31.5 g/dL Low 31.7-36.0 Platelet Count 200 K/uL 150-400 Red Cell Distri Width SD 43.5 fl 36-51 Red Cell Distri Width %CV 13.3 % 11.6-15.8 Mean Platelet Volume 10.4 fL 6.6-10.6 Neut% 51.9 % 33.0-73.0 Lymph % 27.9 % 17.0-56.0 Baxter % 14.6 % High 0.0-10.0 Eo% 4.2 % 0.0-5.0 Bas% 1.4 % High 0.1-1.0 Neut# 2.21 K/uL 1.8-7.0 Lymph # 1.19 K/uL Low 1.2-4.0 Baxter # 0.62 K/uL High 0.0-0.6 Eos # 0.18 K/uL 0.0-0.5 Baso # 0.06 K/uL Low 0.1-0.2 Protime 03/05/2013 Protime 14.4 seconds 12.0-14.4 Inr 1.1 0.9-1.1 27 Laboratory test finding 03/05/2013 Act Partial Thrombo 25.0 seconds 23.4- 35.0 28 Time PSA Total And Free -RL 04/21/2012 PSA Total 5.4 NG/ML High (0.0-4.0) 29 PSA Free 0.2 NG/ML 29 PSA % Free 4 % 29, 30 Comprehensive Metabolic (CMP) 04/12/2012 Sodium 141 mmol/L 134-142 Potassium 4.2 mmol/L 3.5-5.2 Chloride 104 mmol/L 97-109 Carbon Dioxide 31 mmol/L 24-34 Glucose 87 mg/dL 70-105 BUN 22 mg/dL 6-26 Creatinine 1.0 mg/dL 0.5-1.4 Calcium 9.7 mg/dL 8.5-10.2 Total Protein 7.1 g/dL 6.0-8.0 Albumin 4.8 g/dL 3.6-4.9 Globulin 2.3 g/dL 2.0-3.5 A/G Ratio 2.1 Ratio 1.0-2.2 Total Bilirubin 1.2 mg/dL 0.1-1.3 Alkaline Phosphatase 67 U/L 24-140 Alt 25 U/L 3-42 Ast 21 U/L 8-42 Anion Gap 10 mmol/L 6-14 Nikia Egfr >60 >60 31 Non Nikia Egfr >60 >60 32 Lipid 04/12/2012 Cholesterol 216 mg/dL High 50-199 Triglycerides 71 mg/dL 30-200 HDL 47 mg/dL 29-71 33 Chol/ HDL Ratio 4.6 ratio 4.0-6.7 VLDL 14 mg/dL 2-29 LDL (Calc) 155 mg/dL High 20-129 34 Non HDL Cholesterol 169 mg/dL High 20-129 Laboratory test finding 04/12/2012 PSA 7.87 Results naz High 0.00-4.00 35 <SEE NOTE> ng/mL Comprehensive Metabolic 04/06/2011 Sodium 144 mmol/L 135-144 36 (CMP) Potassium 4.4 mmol/L 3.6-5.2 36 Chloride 106 mmol/L 97-110 36 Carbon Dioxide 32 mmol/L 23-32 36 Glucose 94 mg/dL 70-105 36 BUN 14 mg/dL 6-22 36 Creatinine 1.0 mg/dL 0.5-1.3 36 Calcium 9.6 mg/dL 8.6-10.2 36 BUN/CR 14 ratio 12-20 36 Total Protein 6.9 g/dL 5.8-7.8 36 Albumin 4.5 g/dL 3.5-4.8 36 Globulin 2.4 g/dL 2.0-3.5 36 A/G Ratio 1.9 Ratio 1.0-2.2 36 Total Bilirubin 1.3 mg/dL High 0.3-1.2 36 Alkaline Phosphatase 66 U/L 24-140 36 Alt 30 U/L 5-45 36 Ast 26 U/L 12-40 36 Anion Gap 10 mmol/L 8-16 36 Non Nikia Egfr >60 >60 36, 37 Nikia Egfr >60 >60 36, 38 Lipid 04/06/2011 Cholesterol 206 mg/dL High 50-199 36 Triglycerides 76 mg/dL 10-150 36 HDL 48 mg/dL 29-71 36, 39 Chol/ HDL Ratio 4.3 ratio 4.0-6.7 36 VLDL 15 mg/dL 2-29 36 LDL (Calc) 143 mg/dL High 20-129 36, 40 Laboratory test finding 04/06/2011 PSA 2.43 ng/mL 0.00-4.00 36, 41 Laboratory test finding 07/30/2010 PSA 2.13 ng/mL 0.00-4.00 42, 43 Laboratory test finding 04/02/2010 PSA 2.70 ng/ml 0.00-4.00 42, 44 CMP 03/04/2010 Sodium 144 mmol/L 135-144 45 Potassium 4.3 mmol/L 3.6-5.2 45 Chloride 105 mmol/L 97-110 45 Carbon Dioxide 34 mmol/L High 23-32 45 Glucose 88 mg/dL 70-105 45 BUN 14 mg/dL 6-22 45 Creatinine 1.0 mg/dL 0.5-1.3 45 BUN/CR 14 Ratio 45 Calcium 9.4 mg/dL 8.6-10.2 45 Total Protein 6.3 g/dL 5.8-7.8 45 Albumin 4.2 g/dL 3.5-4.8 45 Globulin 2.1 g/dL 2.0-3.5 45 A/G Ratio 2.0 Ratio 1.0-2.2 45 Total Bilirubin 1.3 mg/dL High 0.3-1.2 45 Alkaline Phosphatase 58 U/L 24-140 45 Alt 28 U/L 5-45 45 Ast 22 U/L 12-40 45 Anion Gap 9 mmol/L 8-16 45 GFR Calculation > 60 mL/min 60-175 45, 46 GFR For > 60 mL/min 60-175 45, 47 Lipid Panel 03/04/2010 Cholesterol 169 mg/dL 50-199 45 Triglycerides 90 mg/dL 10-150 45 HDL 35 mg/dL 29-71 45, 48 Chol/HDL Ratio 4.8 Ratio 4.0-6.7 45, 49 VLDL 18 mg/dL 2-29 45 LDL (Calc) 116 mg/dL 20-129 45, 50 Laboratory test finding 03/04/2010 PSA 3.58 ng/ml 0.00-4.00 45, 51 Laboratory test finding 03/03/2009 PSA 1.01 ng/ml 0.00-4.00 45, 52 CMP 03/03/2009 Sodium 143 mmol/L 135-144 45 Potassium 4.4 mmol/L 3.6-5.2 45 Chloride 106 mmol/L 97-110 45 Carbon Dioxide 31 mmol/L 23-32 45 Glucose 90 mg/dL 70-105 45 BUN 13 mg/dL 6-22 45 Creatinine 1.0 mg/dL 0.5-1.3 45 BUN/CR 13 Ratio 12.0-20.0 45 Calcium 9.5 mg/dL 8.6-10.2 45 Total Protein 6.7 g/dL 5.8-7.8 45 Albumin 4.7 g/dL 3.5-4.8 45 Globulin 2.0 g/dL 2.0-3.5 45 A/G Ratio 2.4 Ratio High 1.0-2.2 45 Total Bilirubin 1.5 mg/dL High 0.3-1.2 45 Alkaline Phosphatase 63 U/L 24-140 45 Alt 33 U/L 5-45 45 Ast 28 U/L 12-40 45 Anion Gap 10 mmol/L 8-16 45 GFR Calculation > 60 mL/min 60-175 45, 53 GFR For > 60 mL/min 60-175 45, 54 Lipid Panel 03/03/2009 Cholesterol 194 mg/dL 50-199 45 Triglycerides 72 mg/dL 10-150 45 HDL 38 mg/dL 29-71 45, 55 Chol/HDL Ratio 5.1 Ratio 4.0-6.7 45, 56 VLDL 14 mg/dL 2-29 45 LDL (Calc) 142 mg/dL High 20-129 45, 57 CMP 03/01/2008 Sodium 144 mmol/L 135-144 45 Potassium 4.2 mmol/L 3.6-5.2 45 Chloride 105 mmol/L 97-110 45 Carbon Dioxide 30 mmol/L 23-33 45 Glucose 99 mg/dL 70-105 45 BUN 16 mg/dL 6-22 45 Creatinine 0.9 mg/dL 0.5-1.3 45 BUN/CR 18 Ratio 12.0-20.0 45 Calcium 9.7 mg/dL 8.6-10.2 45 Total Protein 6.4 g/dL 5.8-7.8 45 Albumin 4.5 g/dL 3.5-4.8 45 Globulin 1.9 g/dL Low 2.0-3.5 45 A/G Ratio 2.4 Ratio High 1.0-2.2 45 Total Bilirubin 1.6 mg/dL High 0.3-1.2 45, 58 Alkaline Phosphatase 70 U/L 24-140 45 Alt 44 U/L 4-45 45 Ast 32 U/L 12-40 45 Anion Gap 13 mmol/L 8-16 45 GFR Calculation > 60 mL/min 45, 59 GFR For > 60 mL/min 45, 60 Lipid Panel 03/01/2008 Cholesterol 192 mg/dL 50-199 45 Triglycerides 94 mg/dL 10-150 45 HDL 40 mg/dL 29-71 45, 61 Chol/HDL Ratio 4.8 Ratio 45, 62 VLDL 19 mg/dL 45 LDL (Calc) 133 mg/dL High 20-129 45, 63 Laboratory test finding 03/01/2008 PSA 0.89 ng/ml 0.00-4.00 45, 64 Laboratory test finding 02/22/2007 PSA 0.54 ng/ml 0.00-4.00 65, 66 CMP 02/22/2007 Sodium 142 mmol/L 135-144 65 Potassium 5.1 mmol/L 3.6-5.2 65 Chloride 104 mmol/L 97-110 65 Carbon Dioxide 29 mmol/L 23-33 65 Glucose 92 mg/dL 70-105 65 BUN 15 mg/dL 6-22 65 Creatinine 0.9 mg/dL 0.5-1.3 65 BUN/CR 17 Ratio 12.0-20.0 65 Calcium 9.8 mg/dL 8.6-10.2 65 Total Protein 6.3 g/dL 5.8-7.8 65 Albumin 4.4 g/dL 3.5-4.8 65 Globulin 1.9 g/dL Low 2.0-3.5 65 A/G Ratio 2.3 Ratio High 1.0-2.2 65 Total Bilirubin 2.2 mg/dL High 0.3-1.2 65, 67 Alkaline Phosphatase 64 U/L 24-140 65 Alt 45 U/L 4-45 65 Ast 29 U/L 12-40 65 Anion Gap 14 mmol/L 8-16 65 GFR Calculation > 60 mL/min 65, 68 GFR For > 60 mL/min 65, 69 CBC With Auto Diff 02/22/2007 WBC 4.7 K/ul 4.0-10.9 65 RBC 5.02 M/ul 4.70-6.10 65 Hemoglobin 16.8 GM/dl 13.5-18.0 65 Hematocrit 49.0 % 42.0-52.0 65 MCV 97.7 FL High 80.0-97.0 65 MCH 33.5 pg High 27.0-31.0 65 MCHC 34.3 g/dL 32.0-36.0 65 RDW 12.2 % 11.5-14.5 65 Platelet Count 191 K/ul 140-440 65 Neutrophils 63.5 % 50-70 65 Lymphocytes 23.5 % 20-44 65 Monocytes 9.4 % High 2-9 65 Eosinophil 2.4 % 0-4 65 Basophil 1.2 % 0-2 65 Absolute Neutrophils 3.0 K/ul 2.05-7.63 65 Absolute Lymphocytes 1.1 K/ul 0.8-4.8 65 Absolute Monocytes 0.4 K/ul 0.1-1.0 65 Absolute Eosinophils 0.1 K/ul 0.1-0.5 65 Absolute Basophils 0.1 K/ul 0.1-0.3 65 Lipid Panel 02/22/2007 Cholesterol 196 mg/dL 50-199 65 Triglycerides 80 mg/dL 10-150 65 HDL 45 mg/dL 29-71 65 Chol/HDL Ratio 4.4 Ratio 65 VLDL 16 mg/dL 65 LDL (Calc) 135 mg/dL High 20-129 65 Hepatic Liver Panel 05/17/2006 Total Protein 6.5 g/dL 5.8-7.8 Albumin 4.3 g/dL 3.5-4.8 Total Bilirubin 1.3 mg/dL High 0.3-1.2 Direct Bilirubin 0.1 mg/dL 0.0-0.5 Alkaline Phosphatase 65 U/L 24-140 Alt 78 U/L High 4-45 Ast 40 U/L 12-40 CMP 02/21/2006 Sodium 140 mmol/L 135-144 65 Potassium 4.4 mmol/L 3.6-5.2 65 Chloride 104 mmol/L 97-110 65 Carbon Dioxide 29 mmol/L 23-33 65 Glucose 92 mg/dL 70-105 65 BUN 21 mg/dL 6-22 65 Creatinine 1.1 mg/dL 0.5-1.3 65 BUN/CR 19 Ratio 12.0-20.0 65 Calcium 9.6 mg/dL 8.6-10.2 65 Total Protein 6.3 g/dL 5.8-7.8 65 Albumin 4.3 g/dL 3.5-4.8 65 Globulin 2.0 g/dL 2.0-3.5 65 A/G Ratio 2.2 Ratio 1.0-2.2 65 Total Bilirubin 2.0 mg/dL High 0.3-1.2 65 Alkaline Phosphatase 67 U/L 24-140 65 Alt 70 U/L High 4-45 65 Ast 39 U/L 12-40 65 Anion Gap 11 mmol/L 8-16 65 GFR White Male 73 65 GFR White Female 54 65 GFR Black Male 89 65 GFR Black Female 66 65 GFR Guidelines 0 65, 70 Laboratory test finding 02/21/2006 PSA 0.52 ng/ml 0.00-4.00 65, 71 Lipid Panel 02/21/2006 Cholesterol 202 mg/dL High 50-199 65 Triglycerides 128 mg/dL 10-150 65 HDL 37 mg/dL -71 65 Chol/HDL Ratio 5.5 Ratio 65 VLDL 26 mg/dL 65 LDL (Calc) 139 mg/dL High 20-129 65 Laboratory test finding 02/02/2005 PSA 0.38 ng/ml 0.00-4.00 65, 72 Lipid Panel 02/02/2005 Cholesterol 186 mg/dL 50-199 65 Triglycerides 98 mg/dL 10-150 65 HDL 42 mg/dL 29-71 65 Chol/HDL Ratio 4.4 Ratio 65 VLDL 20 mg/dL 65 LDL (Calc) 124 mg/dL High 20-100 65 CMP 02/02/2005 Sodium 142 mmol/L 135-144 65 Potassium 4.8 mmol/L 3.6-5.2 65 Chloride 102 mmol/L 97-110 65 Carbon Dioxide 33 mmol/L High 22-32 65 Glucose 92 mg/dL 70-105 65 BUN 19 mg/dL 6-22 65 Creatinine 0.9 mg/dL 0.5-1.3 65 BUN/CR 21 Ratio High 12.0-20.0 65 Calcium 9.5 mg/dL 8.6-10.2 65, 73 Total Protein 6.4 g/dL 5.8-7.8 65 Albumin 4.0 g/dL 3.5-4.8 65 Globulin 2.4 g/dL 2.0-3.5 65 A/G Ratio 1.7 Ratio 1.0-2.2 65 Total Bilirubin 1.4 mg/dL High 0.3-1.2 65 Ast 24 U/L 12-40 65 Alt 31 U/L 4-45 65 Alkaline Phosphatase 60 U/L 24-108 65 Anion Gap 12 mmol/L 8-16 65 Laboratory test finding 01/24/2004 PSA 0.46 ng/ml 0.00-4.00 74 CMP 01/24/2004 Sodium 141 mmol/L 135-145 Potassium 4.5 mmol/L 3.4-5.3 Chloride 107 mmol/L 98-111 Carbon Dioxide 27 mmol/L 22-33 Glucose 94 mg/dL 70-105 BUN 20 mg/dL 6-26 Creatinine 1.1 mg/dL 0.5-1.5 BUN/CR 18 Ratio 12.0-20.0 Calcium 9.1 mg/dL 8.6-10.3 Total Protein 6.7 g/dL 6.2-8.3 Albumin 4.2 g/dL 3.5-5.0 Globulin 2.5 g/dL Low 2.7-4.3 A/G Ratio 1.7 Ratio 1.0-2.2 Total Bilirubin 1.5 mg/dL High 0.1-1.3 Ast 23 U/L 8-42 Alt 25 U/L 3-42 Alkaline Phosphatase 54 U/L 24-108 Anion Gap 12 mmol/L 10-20 Laboratory test finding 01/24/2004 Lanoxin (Digoxin) 1.4 ng/ml 0.9-2.0 [facility] 01/22/2003 Sodium 145 mmol/L 135-145 Potassium 5.2 mmol/L 3.4-5.3 Chloride 108 mmol/L 98-111 Carbon Dioxide 28 mmol/L 22-33 Glucose 98 mg/dL 70-105 BUN 18 mg/dL 6-26 Creatinine 1.1 mg/dL 0.5-1.5 BUN/CR 16 Ratio 12.0-20.0 Calcium 9.5 mg/dL 8.6-10.3 Total Protein 6.8 g/dL 6.2-8.3 Albumin 4.3 g/dL 3.5-5.0 Globulin 2.5 g/dL Low 2.7-4.3 A/G Ratio 1.7 Ratio 1.0-2.2 Total Bilirubin 1.4 mg/dL High 0.1-1.3 Ast 23 U/L 8-42 Alt 26 U/L 3-42 Alkaline Phosphatase 49 U/L 24-108 Anion Gap 14 mmol/L 10-20 Lipid Panel 01/22/2003 Cholesterol 177 mg/dL 50-199 Triglycerides 82 mg/dL 30-200 HDL 41 mg/dL 29-71 Chol/HDL Ratio 4.3 Ratio VLDL 16 mg/dL LDL (Calc) 120 mg/dL 20-129 Laboratory test finding 01/22/2003 PSA 0.53 ng/ml 0.00-4.00 75 Laboratory test finding 01/19/2002 PSA 0.58 ng/ml 0.00-4.00 76 Lipid Panel 01/19/2002 Cholesterol 210 mg/dL High 50-199 Triglycerides 110 mg/dL 30-249 HDL Cholesterol 45 mg/dL 29-67 LDL(Calc) 142 mg/dL High 20-129 Chol/HDL Ratio 4.61 77 VLDL Cholesterol 22 mg/dL Laboratory test finding 01/19/2002 Glucose 91 mg/dL 75-110 1 Concerning GFR Guidelines for Americans: Normal function or mild renal disease, if clinically at risk: >/=60 mL/min Moderately decreased: 30-59 Severely decreased: 15-29 Renal failure: <15 2 Concerning GFR Guidelines: Normal function or mild renal disease, if clinically at risk: >/=60 mL/min Moderately decreased: 30-59 Severely decreased: 15-29 Renal failure: <15 Glomerular Filtration Rate (GFR) is estimated based on the MDRD equation, which assumes a steady state for creatinine as recommended by the National Kidney Disease Education Program in conjunction with the National Institutes of Health and the National Kidney Foundation. Clinical conditions in which it may be necessary to measure GFR by using clearance methods include extremes of age and body size, severe malnutrition or obesity, diseases of skeletal muscle, paraplegia or quadriplegia, vegetarian diet, rapidly changing kidney function, and calculation of the dose of potentially toxic drugs that are excreted by the kidneys. 3 Per NCEP ATP III Guidelines: Results lower than 40 mg/dL are suggestive of increased risk for coronary artery disease. Results > or=to 60 mg/dL are considered a negative risk factor. 4 Per NCEP ATP III Guidelines: Normal Population <130 Patients with medical conditions: CHD/DM Optimal: <100 Borderline high: 130-159 High: 160-189 Very high: >189 5 Beginning 06/27/06 PSA values assayed at [facility] uses chemiluminescence methodology manufactured by [employer] for use on the DXI analyzer. Values obtained with different assay methods or kits can not be used interchangeably. Serum PSA measurement is not an absolute test for malignancy. The PSA value should be used in conjunction with information available from clinical evaluation and other diagnostic procedures. 6 Concerning GFR Guidelines for Americans: Normal function or mild renal disease, if clinically at risk: >/=60 mL/min Moderately decreased: 30-59 Severely decreased: 15-29 Renal failure: <15 7 Concerning GFR Guidelines: Normal function or mild renal disease, if clinically at risk: >/=60 mL/min Moderately decreased: 30-59 Severely decreased: 15-29 Renal failure: <15 Glomerular Filtration Rate (GFR) is estimated based on the MDRD equation, which assumes a steady state for creatinine as recommended by the National Kidney Disease Education Program in conjunction with the National Institutes of Health and the National Kidney Foundation. Clinical conditions in which it may be necessary to measure GFR by using clearance methods include extremes of age and body size, severe malnutrition or obesity, diseases of skeletal muscle, paraplegia or quadriplegia, vegetarian diet, rapidly changing kidney function, and calculation of the dose of potentially toxic drugs that are excreted by the kidneys. 8 Per NCEP ATP III Guidelines: Results lower than 40 mg/dL are suggestive of increased risk for coronary artery disease. Results > or=to 60 mg/dL are considered a negative risk factor. 9 Per NCEP ATP III Guidelines: Normal Population <130 Patients with medical conditions: CHD/DM Optimal: <100 Borderline high: 130-159 High: 160-189 Very high: >189 10 Beginning 06/27/06 PSA values assayed at [facility] uses an EIA methodology manufactured by [employer] for use on the DXI analyzer. Values obtained with different assay methods or kits can not be used interchangeably. Serum PSA measurement is not an absolute test for malignancy. The PSA value should be used in conjunction with information available from clinical evaluation and other diagnostic procedures. 11 Concerning GFR Guidelines for Americans: Normal function or mild renal disease, if clinically at risk: >/=60 mL/min Moderately decreased: 30-59 Severely decreased: 15-29 Renal failure: <15 12 Concerning GFR Guidelines: Normal function or mild renal disease, if clinically at risk: >/=60 mL/min Moderately decreased: 30-59 Severely decreased: 15-29 Renal failure: <15 Glomerular Filtration Rate (GFR) is estimated based on the MDRD equation, which assumes a steady state for creatinine as recommended by the National Kidney Disease Education Program in conjunction with the National Institutes of Health and the National Kidney Foundation. Clinical conditions in which it may be necessary to measure GFR by using clearance methods include extremes of age and body size, severe malnutrition or obesity, diseases of skeletal muscle, paraplegia or quadriplegia, vegetarian diet, rapidly changing kidney function, and calculation of the dose of potentially toxic drugs that are excreted by the kidneys. 13 Per NCEP ATP III Guidelines: Results lower than 40 mg/dL are suggestive of increased risk for coronary artery disease. Results > or=to 60 mg/dL are considered a negative risk factor. 14 Per NCEP ATP III Guidelines: Normal Population <130 Patients with medical conditions: CHD/DM Optimal: <100 Borderline high: 130-159 High: 160-189 Very high: >189 15 Fastin hours 16 Per NCEP ATP III Guidelines: Results lower than 40 mg/dL are suggestive of increased risk for coronary artery disease. Results > or=to 60 mg/dL are considered a negative risk factor. 17 Per NCEP ATP III Guidelines: Normal Population <130 Patients with medical conditions: CHD/DM Optimal: <100 Borderline high: 130-159 High: 160-189 Very high: >189 18 Concerning GFR Guidelines for Americans: Normal function or mild renal disease, if clinically at risk: >/=60 mL/min Moderately decreased: 30-59 Severely decreased: 15-29 Renal failure: <15 19 Concerning GFR Guidelines: Normal function or mild renal disease, if clinically at risk: >/=60 mL/min Moderately decreased: 30-59 Severely decreased: 15-29 Renal failure: <15 Glomerular Filtration Rate (GFR) is estimated based on the MDRD equation, which assumes a steady state for creatinine as recommended by the National Kidney Disease Education Program in conjunction with the National Institutes of Health and the National Kidney Foundation. Clinical conditions in which it may be necessary to measure GFR by using clearance methods include extremes of age and body size, severe malnutrition or obesity, diseases of skeletal muscle, paraplegia or quadriplegia, vegetarian diet, rapidly changing kidney function, and calculation of the dose of potentially toxic drugs that are excreted by the kidneys. 20 Beginning 06/27/06 PSA values assayed at [facility] uses an EIA methodology manufactured by [employer] for use on the DXI analyzer. Values obtained with different assay methods or kits can not be used interchangeably. Serum PSA measurement is not an absolute test for malignancy. The PSA value should be used in conjunction with information available from clinical evaluation and other diagnostic procedures. 21 Concerning GFR Guidelines for Americans: Normal function or mild renal disease, if clinically at risk: >/=60 mL/min Moderately decreased: 30-59 Severely decreased: 15-29 Renal failure: <15 22 Concerning GFR Guidelines: Normal function or mild renal disease, if clinically at risk: >/=60 mL/min Moderately decreased: 30-59 Severely decreased: 15-29 Renal failure: <15 Glomerular Filtration Rate (GFR) is estimated based on the MDRD equation, which assumes a steady state for creatinine as recommended by the National Kidney Disease Education Program in conjunction with the National Institutes of Health and the National Kidney Foundation. Clinical conditions in which it may be necessary to measure GFR by using clearance methods include extremes of age and body size, severe malnutrition or obesity, diseases of skeletal muscle, paraplegia or quadriplegia, vegetarian diet, rapidly changing kidney function, and calculation of the dose of potentially toxic drugs that are excreted by the kidneys. 23 Per NCEP ATP III Guidelines: Results lower than 40 mg/dL are suggestive of increased risk for coronary artery disease. Results > or=to 60 mg/dL are considered a negative risk factor. 24 Per NCEP ATP III Guidelines: Normal Population <130 Patients with medical conditions: CHD/DM Optimal: <100 Borderline high: 130-159 High: 160-189 Very high: >189 25 NOT INFECTED WITH HCV, UNLESS RECENT INFECTION IS SUSPECTED OR OTHER EVIDENCE EXISTS TO INDICATE HCV INFECTION. Unless otherwise specified, testing performed by [email or web address] [address] [place] [id number] 26 Note: Persistent reduction for 3 months or more in an eGFR <60 mL/min/1.73 m2 defines CKD. Patients with eGFR values >/=60 mL/min/1.73 m2 may also have CKD if evidence of persistent proteinuria is present. The original MDRD equation for estimated GFR is not valid for patients less than 18 years of age. Additional information may be found at [email or web address]. 27 THERAPEUTIC INR RANGE: 2.0 - 3.0 DVT, Pulmonary embolus, prophylaxis against venous thrombosis or systemic embolization in high risk patients. 2.5 - 3.5 Mechanical heart valves 28 Is patient on anticoagulants? None QUERY: Anticoagulant Therapy? QUERY: Date of Last Dose: QUERY: Time of Last Dose: 29 This sample is drawn by:AB 30 % FREE PSA PROBABILITY OF CANCER 0 - 10% 56% 10 - 15% 28% 15 - 20% 20% 20 - 25% 16% GREATER THAN 25% 8% THE FREE PSA PERCENTAGE IS AN AID IN DISTINGUISHING PROSTATE CANCER FROM BENIGN PROSTATIC CONDITIONS IN MEN AGE 50 AND OLDER WITH A TOTAL PSA BETWEEN 3 AND 10 NG/ML AND NEGATIVE DIGITAL RECTAL EXAMINATION FINDINGS. PROSTATIC BIOPSY IS REQUIRED FOR THE DIAGNOSIS OF CANCER. (See: QIANA 1998; 279: [id number]) METHOD USED TO ASSAY BOTH FREE PSA AND TOTAL PSA IS [employer] IMMUNOASSAY SYSTEM [employer] FREE PSA AND TOTAL PSA. RESULTS SHOULD NOT BE INTERPRETED ABSOLUTE EVIDENCE FOR THE PRESENCE OR ABSENCE OF MALIGNANT DISEASE. VALUES OBTAINED WITH DIFFERENT ASSAY METHODS OR KITS CANNOT BE USED INTERCHANGEABLY. Unless otherwise specified, testing performed by [email or web address] [address] [place] [id number] 31 Concerning GFR Guidelines for Americans: Normal function or mild renal disease, if clinically at risk: >/=60 mL/min Moderately decreased: 30-59 Severely decreased: 15-29 Renal failure: <15 32 Concerning GFR Guidelines: Normal function or mild renal disease, if clinically at risk: >/=60 mL/min Moderately decreased: 30-59 Severely decreased: 15-29 Renal failure: <15 Glomerular Filtration Rate (GFR) is estimated based on the MDRD equation, which assumes a steady state for creatinine as recommended by the National Kidney Disease Education Program in conjunction with the National Institutes of Health and the National Kidney Foundation. Clinical conditions in which it may be necessary to measure GFR by using clearance methods include extremes of age and body size, severe malnutrition or obesity, diseases of skeletal muscle, paraplegia or quadriplegia, vegetarian diet, rapidly changing kidney function, and calculation of the dose of potentially toxic drugs that are excreted by the kidneys. 33 Per NCEP ATP III Guidelines: Results lower than 40 mg/dL are suggestive of increased risk for coronary artery disease. Results > or=to 60 mg/dL are considered a negative risk factor. 34 Per NCEP ATP III Guidelines: Optimal: <100 Near optimal: 100-129 Borderline high: 130-159 High: 160-189 Very high: >189 35 7.87 Results verified by repeat analysis Beginning 06/27/06 PSA values assayed at [facility] uses an EIA methodology manufactured by [employer] for use on the DXI analyzer. Values obtained with different assay methods or kits can not be used interchangeably. Serum PSA measurement is not an absolute test for malignancy. The PSA value should be used in conjunction with information available from clinical evaluation and other diagnostic procedures. 36 This sample is drawn by:[email or web address] 37 Concerning GFR Guidelines: Normal function or mild renal disease, if clinically at risk: >/=60 mL/min Moderately decreased: 30-59 Severely decreased: 15-29 Renal failure: <15 Glomerular Filtration Rate (GFR) is estimated based on the MDRD equation, which assumes a steady state for creatinine as recommended by the National Kidney Disease Education Program in conjunction with the National Institutes of Health and the National Kidney Foundation. Clinical conditions in which it may be necessary to measure GFR by using clearance methods include extremes of age and body size, severe malnutrition or obesity, diseases of skeletal muscle, paraplegia or quadriplegia, vegetarian diet, rapidly changing kidney function, and calculation of the dose of potentially toxic drugs that are excreted by the kidneys. 38 Concerning GFR Guidelines for Americans: Normal function or mild renal disease, if clinically at risk: >/=60 mL/min Moderately decreased: 30-59 Severely decreased: 15-29 Renal failure: <15 39 Per NCEP ATP III Guidelines: Results lower than 40 mg/dL are suggestive of increased risk for coronary artery disease. Results > or=to 60 mg/dL are considered a negative risk factor. 40 Per NCEP ATP III Guidelines: Optimal: <100 Near optimal: 100-129 Borderline high: 130-159 High: 160-189 Very high: >189 41 Beginning 06/27/06 PSA values assayed at [facility] uses an EIA methodology manufactured by [employer] for use on the DXI analyzer. Values obtained with different assay methods or kits can not be used interchangeably. Serum PSA measurement is not an absolute test for malignancy. The PSA value should be used in conjunction with information available from clinical evaluation and other diagnostic procedures. 42 This sample is drawn by:AB 43 Beginning 06/27/06 PSA values assayed at [facility] uses an EIA methodology manufactured by [employer] for use on the DXI analyzer. Values obtained with different assay methods or kits can not be used interchangeably. Serum PSA measurement is not an absolute test for malignancy. The PSA value should be used in conjunction with information available from clinical evaluation and other diagnostic procedures. 44 BEGINNING 06/27/06, PSA VALUES ASSAYED AT [facility] USES AN EIA METHODOLOGY MANUFACTURED BY [employer] FOR USE ON THE DXI ANALYZER. VALUES OBTAINED WITH DIFFERENT ASSAY METHODS OR KITS CAN NOT BE USED INTERCHANGEABLY. SERUM PSA MEASUREMENT IS NOT AN ABSOLUTE TEST FOR MALIGNANCY, THE PSA VALUE SHOULD BE USED IN CONJUNCTION WITH INFORMATION AVAILABLE FROM CLINICAL EVALUATION AND OTHER DIAGNOSTIC PROCEDURES. 45 FASTING This sample is drawn by: BB 46 Concerning GFR GUIDELINES: Normal Function or Mild Renal Disease, if clinically at risk: >/=60mL/min Moderately decreased: 30-59 Severely decreased: 15-29 Renal Failure: <15 Glomerular Filtration Rate (GFR) is estimated based on the MDRD equation, which assumes a steady state for creatinine as recommended by the National Kidney Disease Education Program in conjunction with the National Institutes of Health and the National Kidney Foundation. Clinical conditions in which it may be necessary to measure GFR by using clearance methods include extremes of age and body size, severe malnutrition or obesity, diseases of skeletal muscle, paraplegia or quadriplegia, vegetarian diet, rapidly changing kidney function, and calculation of the dose of potentially toxic drugs that are excreted by the kidneys. 47 Concerning GFR GUIDELINES: Normal Function or Mild Renal Disease, if clinically at risk: >/=60mL/min Moderately decreased: 30-59 Severely decreased: 15-29 Renal Failure: <15 48 PER NCEP ATP III GUIDELINES: RESULTS LOWER THAN 40 MG/DL ARE SUGGESTIVE OF INCREASED RISK FOR CORONARY ARTERY DISEASE. RESULTS > OR=TO 60 MG/DL ARE CONSIDERED A NEGATIVE RISK FACTOR. 49 INTERPRETATION OF CHOL-HDL RATIO CHD RISK FEMALE MALE VERY HIGH >8.3 >14.3 HIGH 5.6 - 8.3 6.7 - 14.3 AVERAGE 3.7 - 5.6 4.0 - 6.7 BELOW AVERAGE 2.5 - 3.7 2.7 - 4.0 PROTECTED <2.5 <2.7 50 PER NCEP ATP III GUIDELINES: OPTIMAL: <100 NEAR OPTIMAL: 100 - 129 BORDERLINE HIGH: 130 - 159 HIGH: 160 - 189 VERY HIGH: >189 51 BEGINNING 06/27/06, PSA VALUES ASSAYED AT [facility] USES AN EIA METHODOLOGY MANUFACTURED BY [email or web address] FOR USE ON THE DXI ANALYZER. VALUES OBTAINED WITH DIFFERENT ASSAY METHODS OR KITS CAN NOT BE USED INTERCHANGEABLY. SERUM PSA MEASUREMENT IS NOT AN ABSOLUTE TEST FOR MALIGNANCY, THE PSA VALUE SHOULD BE USED IN CONJUNCTION WITH INFORMATION AVAILABLE FROM CLINICAL EVALUATION AND OTHER DIAGNOSTIC PROCEDURES. 52 BEGINNING 06/27/06, PSA VALUES ASSAYED AT [facility] USES AN EIA METHODOLOGY MANUFACTURED BY [email or web address] FOR USE ON THE DXI ANALYZER. VALUES OBTAINED WITH DIFFERENT ASSAY METHODS OR KITS CAN NOT BE USED INTERCHANGEABLY. SERUM PSA MEASUREMENT IS NOT AN ABSOLUTE TEST FOR MALIGNANCY, THE PSA VALUE SHOULD BE USED IN CONJUNCTION WITH INFORMATION AVAILABLE FROM CLINICAL EVALUATION AND OTHER DIAGNOSTIC PROCEDURES. 53 Concerning GFR GUIDELINES: Normal Function or Mild Renal Disease, if clinically at risk: >/=60mL/min Moderately decreased: 30-59 Severely decreased: 15-29 Renal Failure: <15 Glomerular Filtration Rate (GFR) is estimated based on the MDRD equation, which assumes a steady state for creatinine as recommended by the National Kidney Disease Education Program in conjunction with the National Institutes of Health and the National Kidney Foundation. Clinical conditions in which it may be necessary to measure GFR by using clearance methods include extremes of age and body size, severe malnutrition or obesity, diseases of skeletal muscle, paraplegia or quadriplegia, vegetarian diet, rapidly changing kidney function, and calculation of the dose of potentially toxic drugs that are excreted by the kidneys. 54 Concerning GFR GUIDELINES: Normal Function or Mild Renal Disease, if clinically at risk: >/=60mL/min Moderately decreased: 30-59 Severely decreased: 15-29 Renal Failure: <15 55 PER NCEP ATP III GUIDELINES: RESULTS LOWER THAN 40 MG/DL ARE SUGGESTIVE OF INCREASED RISK FOR CORONARY ARTERY DISEASE. RESULTS > OR=TO 60 MG/DL ARE CONSIDERED A NEGATIVE RISK FACTOR. 56 INTERPRETATION OF CHOL-HDL RATIO CHD RISK FEMALE MALE VERY HIGH >8.3 >14.3 HIGH 5.6 - 8.3 6.7 - 14.3 AVERAGE 3.7 - 5.6 4.0 - 6.7 BELOW AVERAGE 2.5 - 3.7 2.7 - 4.0 PROTECTED <2.5 <2.7 57 PER NCEP ATP III GUIDELINES: OPTIMAL: <100 NEAR OPTIMAL: 100 - 129 BORDERLINE HIGH: 130 - 159 HIGH: 160 - 189 VERY HIGH: >189 58 The difference between the most recent result of 2.2 and the current result of 1.6 exceeds the absolute delta value of 0.3 as defined for this test. 59 Concerning GFR GUIDELINES: Normal Function or Mild Renal Disease, if clinically at risk: >/=60mL/min Moderately decreased: 30-59 Severely decreased: 15-29 Renal Failure: <15 Glomerular Filtration Rate (GFR) is estimated based on the MDRD equation, which assumes a steady state for creatinine as recommended by the National Kidney Disease Education Program in conjunction with the National Institutes of Health and the National Kidney Foundation. Clinical conditions in which it may be necessary to measure GFR by using clearance methods include extremes of age and body size, severe malnutrition or obesity, diseases of skeletal muscle, paraplegia or quadriplegia, vegetarian diet, rapidly changing kidney function, and calculation of the dose of potentially toxic drugs that are excreted by the kidneys. 60 Concerning GFR GUIDELINES: Normal Function or Mild Renal Disease, if clinically at risk: >/=60mL/min Moderately decreased: 30-59 Severely decreased: 15-29 Renal Failure: <15 61 PER NCEP ATP III GUIDELINES: RESULTS LOWER THAN 40 MG/DL ARE SUGGESTIVE OF INCREASED RISK FOR CORONARY ARTERY DISEASE. RESULTS > OR=TO 60 MG/DL ARE CONSIDERED A NEGATIVE RISK FACTOR. 62 INTERPRETATION OF CHOL-HDL RATIO CHD RISK FEMALE MALE VERY HIGH >8.3 >14.3 HIGH 5.6 - 8.3 6.7 - 14.3 AVERAGE 3.7 - 5.6 4.0 - 6.7 BELOW AVERAGE 2.5 - 3.7 2.7 - 4.0 PROTECTED <2.5 <2.7 63 PER NCEP ATP III GUIDELINES: OPTIMAL: <100 NEAR OPTIMAL: 100 - 129 BORDERLINE HIGH: 130 - 159 HIGH: 160 - 189 VERY HIGH: >189 64 BEGINNING 06/27/06, PSA VALUES ASSAYED AT [employer] USES AN EIA METHODOLOGY MANUFACTURED BY [employer] FOR USE ON THE DXI ANALYZER. VALUES OBTAINED WITH DIFFERENT ASSAY METHODS OR KITS CAN NOT BE USED INTERCHANGEABLY. SERUM PSA MEASUREMENT IS NOT AN ABSOLUTE TEST FOR MALIGNANCY, THE PSA VALUE SHOULD BE USED IN CONJUNCTION WITH INFORMATION AVAILABLE FROM CLINICAL EVALUATION AND OTHER DIAGNOSTIC PROCEDURES. 65 FASTING 66 BEGINNING 06/27/06, PSA VALUES ASSAYED AT [employer] USES AN EIA METHODOLOGY MANUFACTURED BY [employer] Gotchu FOR USE ON THE DXI ANALYZER. VALUES OBTAINED WITH DIFFERENT ASSAY METHODS OR KITS CAN NOT BE USED INTERCHANGEABLY. SERUM PSA MEASUREMENT IS NOT AN ABSOLUTE TEST FOR MALIGNANCY, THE PSA VALUE SHOULD BE USED IN CONJUNCTION WITH INFORMATION AVAILABLE FROM CLINICAL EVALUATION AND OTHER DIAGNOSTIC PROCEDURES. 67 The difference between the most recent result of 1.3 and the current result of 2.2 exceeds the absolute delta value of 0.3 as defined for this test. 68 Concerning GFR GUIDELINES: Normal Function or Mild Renal Disease, if clinically at risk: >/=60mL/min Moderately decreased: 30-59 Severely decreased: 15-29 Renal Failure: <15 Glomerular Filtration Rate (GFR) is estimated based on the MDRD equation, which assumes a steady state for creatinine as recommended by the National Kidney Disease Education Program in conjunction with the National Institutes of Health and the National Kidney Foundation. Clinical conditions in which it may be necessary to measure GFR by using clearance methods include extremes of age and body size, severe malnutrition or obesity, diseases of skeletal muscle, paraplegia or quadriplegia, vegetarian diet, rapidly changing kidney function, and calculation of the dose of potentially toxic drugs that are excreted by the kidneys. 69 Concerning GFR GUIDELINES: Normal Function or Mild Renal Disease, if clinically at risk: >/=60mL/min Moderately decreased: 30-59 Severely decreased: 15-29 Renal Failure: <15 70 Normal Function or Mild Renal Disease, if clinically at risk: >/=60 mL/ min Moderately decreased: 30-59 Severely decreased: 15-29 Renal Failure: <15 Glomerular Filtration Rate (GFR) is estimated based on the MDRD equation, which assumes a steady state for creatinine as recommended by the National Kidney Disease Education Program in conjunction with the National Institutes of Health and the National Kidney Foundation. Clinical conditions in which it may be necessary to measure GFR by using clearance methods include extremes of age and body size, severe malnutrition or obesity, diseases of skeletal muscle, paraplegia or quadriplegia, vegetarian diet, rapidly changing kidney function, and calculation of the dose of potentially toxic drugs that are excreted by the kidneys. 71 PSA VALUES ASSAYED AT [facility] [employer] USES AN EIA METHODOLOGY MANUFACTURED BY [employer] FOR USE ON THE NEXIA ANALYZER. VALUES OBTAINED WITH DIFFERENT ASSAY METHODS OR KITS CAN NOT BE USED INT ERCHANGEABLY. SERUM PSA MEASUREMENT IS NOT AN ABSOLUTE TEST FOR MALIGNANCY, THE PSA VALUE SHOULD BE USED IN CONJUNCTION WITH INFORMATION AVAILABLE FROM CLINICAL EVALUATION AND OTHER DIAGNOSTIC PROCEDURES. 72 PSA VALUES ASSAYED AT [facility] [employer] USES AN EIA METHODOLOGY MANUFACTURED BY [employer] FOR USE ON THE NEXIA ANALYZER. VALUES OBTAINED WITH DIFFERENT ASSAY METHODS OR KITS CAN NOT BE USED INT ERCHANGEABLY. SERUM PSA MEASUREMENT IS NOT AN ABSOLUTE TEST FOR MALIGNANCY, THE PSA VALUE SHOULD BE USED IN CONJUNCTION WITH INFORMATION AVAILABLE FROM CLINICAL EVALUATION AND OTHER DIAGNOSTIC PROCEDURES. 73 The difference between the most recent result of 9.1 and the current result of 9.5 exceeds the absolute delta value of 0.3 as defined for this test. 74 PSA VALUES ASSAYED AT [facility] USES AN EIA METHODOLOGY MANUFACTURED BY [employer] FOR USE ON THE NEXIA ANALYZER. VALUES OBTAINED WITH DIFFERENT ASSAY METHODS OR KITS CAN NOT BE USED INT ERCHANGEABLY. SERUM PSA MEASUREMENT IS NOT AN ABSOLUTE TEST FOR MALIGNANCY, THE PSA VALUE SHOULD BE USED IN CONJUNCTION WITH INFORMATION AVAILABLE FROM CLINICAL EVALUATION AND OTHER DIAGNOSTIC PROCEDURES. 75 PSA VALUES ASSAYED AT [facility] USES AN EIA METHODOLOGY MANUFACTERED BY [employer] FOR USE ON THE NEXIA ANALYZER. VALUES OBTAINED WITH DIFFERENT ASSAY METHODS OR KITS CAN NOT BE USED INT ERCHANGEABLY. SERUM PSA MEASUREMENT IS NOT AN ABSOLUTE TEST FOR MALIGNANCY, THE PSA VALUE SHOULD BE USED IN CONJUNCTION WITH INFORMATION AVAILABLE FROM CLINICAL EVALUATION AND OTHER DIAGNOSTIC PROCEDURES. 76 PSA VALUES ASSAYED AT [facility] USES AN EIA METHODOLOGY MANUFACTERED BY [employer] FOR USE ON THE NEXIA ANALYZER. VALUES OBTAINED WITH DIFFERENT ASSAY METHODS OR KITS CAN NOT BE USED INT ERCHANGEABLY. SERUM PSA MEASUREMENT IS NOT AN ABSOLUTE TEST FOR MALIGNANCY, THE PSA VALUE SHOULD BE USED IN CONJUNCTION WITH INFORMATION AVAILABLE FROM CLINICAL EVALUATION AND OTHER DIAGNOSTIC PROCEDURES. 77 Normal Range: Male: <4.98 Female: <4.45 Procedures Date CPT Code Description Status 07/20/2013 Colonoscopy Completed 05/31/2011 22179 Audiometry, Comprehensive includes 51790 & 39750 Completed 05/31/2011 93148 tympanometry & reflex threshold measurements Completed 05/31/2011 72435 Caloric Vestibular Test W/Recording Completed 05/31/2011 52087 Vestibular Eval Incl Nystagmus Positional Nystag 4 Completed Position Optok 04/23/2008 59184 Electrocardiogram Complete Completed 07/08/2004 51212 Electrocardiogram Complete Completed 01/22/2003 61702 Electrocardiogram Complete Completed 02/24/2001 86300 ECG Monitor/Report W/O Superimposition Scanning Completed Encounters Type Date Location Provider CPT E/M Dx Office Visit 05/20/2017 1:40[place] [address] J18.9 R51 Office Visit 05/19/2017 1:20p MD Eren Montiel Lori A, [employer] 71982 G47.33 Office Visit 01/05/2017 3:00p MD Eren Montiel Lori A, [employer] 58813 G47.33 Office Visit 08/30/2016 3:40p MD Eren Montiel Lori A, [employer]TER 72792 G47.33 G47.00 H81.399 Office Visit 06/09/2016 9:00a MD Eren Montiel Lori A, [employer]TER 28804 G47.33 G47.00 Office Visit 05/25/2016 7:30a Cristino Haas MD G0439 Z00.00 E78.00 I47.1 Z12.5 Z12.11 F52.21 Office Visit 11/21/2015 8:00[place] [address] E78.0 I47.1 G43.909 Office Visit 05/20/2015 7:30a Cristino Haas MD G0438 Z00.00 Z12.5 Z12.11 I47.1 E78.0 Z23 Office Visit 04/18/2015 3:50p [place] [address] R05 Office Visit 04/01/2015 3:20[place] [address] R05 Office Visit 03/07/2015 2:30[place] [address] J20.9 Office Visit 08/30/2014 1:20[place] [address] 786.2 Office Visit 05/14/2014 7:30[place] [address] V70.0 V76.44 V76.51 427.0 272.0 607.84 Office Visit 04/20/2013 7:30[place] [address] V70.0 V76.44 V76.51 427.0 272.0 780.4 477.9 V73.89 Office Visit 04/12/2012 9:30[place] [address] V70.0 V76.44 V76.51 427.0 272.0 Office Visit 06/07/2011 2:00p MD Laury Montiel Kimberly, LILLIE 64324 780.4 389.9 Office Visit 04/15/2011 12:40[place] [address] 386.10 Office Visit 04/06/2011 8:00[place] [address] V70.0 V76.44 V76.51 427.0 272.0 386.10 Office Visit 08/06/2010 2:40[place] [address] 461.0 Office Visit 03/04/2010 7:30[place] [address] V70.0 V76.44 V76.51 272.0 427.0 V04.81 Office Visit 03/03/2009 7:30[place] [address] V70.0 427.0 V76.44 V76.51 530.81 272.0 Office Visit 04/23/2008 11:20[place] [address] V72.83 V72.84 840.4 272.0 Office Visit 03/01/2008 7:30[place] [address] V70.0 427.0 V76.44 V76.51 530.81 V04.81 272.0 Office Visit 02/22/2007 7:30[place] [address] V70.0 V76.44 V76.51 530.81 V04.81 427.0 272.0 Office Visit 10/26/2006 3:10p [place] [address] 427.0 702.0 Office Visit 08/30/2006 3:40[place] [address] 427.0 Office Visit 05/17/2006 1:10p [place] [address] 427.0 794.8 Office Visit 02/21/2006 9:00[place] [address] V70.0 427.0 V76.44 V76.51 530.81 702.0 Office Visit 08/05/2005 3:20[place] [address] 465.9 Office Visit 02/02/2005 7:30[place] [address] V70.0 427.0 V76.44 V76.51 530.81 V04.81 Office Visit 07/08/2004 1:30[place] [address] V72.84 840.4 Office Visit 01/24/2004 7:30[place] [address] V70.0 752.69 427.0 V76.44 V76.51 530.81 V04.81 Office Visit 01/22/2003 8:00[place] [address] V70.0 752.69 427.0 702.0 V76.44 V76.51 V04.8 Office Visit 10/12/2002 2:20[place] [address] 752.69 Office Visit 01/19/2002 9:30[place] [address] V70.0 427.0 Office Visit 01/30/2001 9:00[place] [address] Office Visit 01/26/2000 8:00[place] [address] 078.10 Plan of Care Future Appointment(s):05/18/2018 1:40 pm - Heidi Jason NP at [facility] MD05/31/2017 - Cristino Palmer MDZ00.00 Encntr for general adult medical exam w/o abnormal findingsComments:he will continue to come here every 6 mo to check cholesterol and bp and onc ea yr for physicalhe sees dr pastrana [facility] for his eyeshe sees dr venegas for colonoscopy , last one was 2013Follow up:rtc 6 mo bp check , one yr edmhntzjR01.00 Pure hypercholesterolemia, unspecifiedNew Labs:Comprehensive Met Panel-FCMGLipidCBC With Auto DiffI47.1 Supraventricular flshbxczhphR96.5 Encounter for screening for malignant neoplasm of prostateNew Labs:PSAZ12.11 Encounter for screening for malignant neoplasm of colon
[2017-06-21 09:07] VITALS: BP 120/82
--- NOTE | 2017-06-21 09:15 | UC ---
Respiratory Complaint HPI - HPI Summary HPI Summary: cough x 2 days productive with yellow sputum chest tightness, + pnd , nasal congestion , no fever, no chills , no sob - History of Current Complaint Chief Complaint: UCRespiratory Stated Complaint: cough/congestion Time Seen by Provider: 06/21/17 09:00 Hx Obtained From: Patient Onset/Duration: Gradual Onset, Lasting Days - 2, Still Present Timing: Constant Severity Initially: Moderate Severity Currently: Moderate Pain Intensity: 1 Character: Cough: Productive Aggravating Factors: Exertion, Deep Breaths Alleviating Factors: Nothing Associated Signs And Symptoms: Positive: Chills, URI, Nasal Congestion. Negative: Dyspnea, Fever, Pleuritic Chest Pain, Wheezing, Hemoptysis, Dizziness , Calf Pain, Calf Swelling, Edema - Allergies/Home Medications Allergies/Adverse Reactions: Allergies Allergy/AdvReac Type Severity Reaction Status Date / Time No Known Allergies Allergy Verified 06/21/17 08:53 Home Medications: Home Medications Aspirin Low Dose CHEW TAB* [Aspirin Low Dose TAB*] 81 mg PO DAILY 06/21/17 [ History Confirmed 06/21/17] Dextromethorphan HBr [Vicks Dayquil Cough] 2 cap PO QAM PRN 06/21/17 [History Confirmed 06/21/17] Dm/Acetaminophen/Doxylamine [Vicks Nyquil Cold & Flu N 15-6.25-325 mg] 2 cap PO QPM PRN 06/21/17 [History Confirmed 06/21/17] PMH/Surg Hx/FS Hx/Imm Hx - Additional Past Medical History Additional PMH: migraine, vertigo, shingles; right knee degenerative arthritis Cardiovascular History: Cardiac Disease - Surgical History Surgical History: Yes Surgery Procedure, Year, and Place: 6 cardiac cath. 5 shoulder (4xrotator cuff) - Family History Known Family History: Positive: Cardiac Disease, Hypertension - Social History Alcohol Use: Daily Alcohol Amount: GLASS OF WINE W/ DINNER Substance Use Type: None Smoking Status (MU): Never Smoked Tobacco Have You Smoked in the Last Year: No - Immunization History Most Recent Influenza Vaccination: 2017 Most Recent Pneumonia Vaccination: 2013 Review of Systems Constitutional: Chills, Fatigue Skin: Negative Eyes: Negative ENT: Sore Throat, Nasal Discharge Respiratory: Cough Cardiovascular: Negative Is Patient Immunocompromised?: No All Other Systems Reviewed And Are Negative: Yes Physical Exam Triage Information Reviewed: Yes Appearance: Well-Appearing, No Pain Distress, Well-Nourished Vital Signs: Initial Vital Signs Temp 98.5 F 06/21/17 08:59 Pulse 82 06/21/17 08:59 Resp 24 06/21/17 08:59 BP 120/82 06/21/17 08:59 Pulse Ox 98 06/21/17 08:59 Vital Signs Reviewed: Yes Eye Exam: Normal Eyes: Positive: Conjunctiva Clear ENT: Positive: Normal ENT inspection, Hearing grossly normal, Pharynx normal, Nasal congestion, Nasal drainage, TMs normal. Negative: Tonsillar swelling, Tonsillar exudate, Sinus tenderness Neck: Positive: Supple, Nontender, No Lymphadenopathy Respiratory: Positive: Chest non-tender, Lungs clear, Normal breath sounds Cardiovascular: Positive: RRR, No Murmur, Pulses Normal Skin Exam: Normal UC Diagnostic Evaluation - Laboratory O2 Sat by Pulse Oximetry: 98 Respiratory Course/Dx - Differential Dx/Diagnosis Provider Diagnoses: Bronchitis Discharge - Discharge Plan Condition: Stable Disposition: HOME Prescriptions: Azithromycin TAB* [Zithromax TAB (Z-JUAREZ) 250 mg #6 tabs] 2 tab PO .TODAY, THEN 1 DAILY #1 juarez Patient Education Materials: Acute Bronchitis (ED) Referrals: Estela SOMMER,Cristino Jaimes [Primary Care Provider] - If Needed
== END 2017-06-21 09:17 | disposition home or self-care (01) ==
LOC: UCCORT 08:39
DX: J40 Bronchitis, not specified as acute or chronic (principal)
CPT/HCPCS: 99212; G0463

== ENCOUNTER 2018-03-28 09:00 | Inpatient (IN) | payer BC, MEDICARE ==
--- NOTE | 2018-03-16 12:26 | HP ---
AMENDED REPORT NOW INCLUDES COSIGNER DESIGNATION HISTORY AND PHYSICAL: DATE OF ADMISSION/SURGERY: 03/28/18 DATE OF OFFICE VISIT: 03/15/18 SURGEON: Janae Sood MD.* (DICTATED BY TERE BERGER) PROCEDURE: Right total knee arthroplasty. CHIEF COMPLAINT: Right knee pain. HISTORY OF PRESENT ILLNESS: Mr. Hernandez is a 67-year-old gentleman with endstage osteoarthritis of the right knee. He has failed conservative treatment and elected to proceed with a right total knee arthroplasty. PAST MEDICAL HISTORY: AFib, GERD, sleep apnea. He has a Medtronic loop recorder. PAST SURGICAL HISTORY: Heart catheterization, cardiac ablation, 5 shoulder surgeries, and placement of the Medtronic loop recorder. CURRENT MEDICATIONS: 1. Omeprazole 10 mg daily. 2. Aspirin 81 mg daily. 3. Iron. 4. Nortriptyline 25 mg q.h.s. 5. Naproxen 220 twice a day. 6. Multivitamin. ALLERGIES: No known drug allergies. FAMILY HISTORY: Cancer, sarcoidosis. SOCIAL HISTORY: A 67-year-old lives with his , does not smoke or use drugs. Uses occasional alcohol. REVIEW OF SYSTEMS: A complete 14-point review of systems is reviewed with the patient, it was positive for GERD. He denies issue of DVT, PE, hepatitis, HIV, or anesthesia problems. PHYSICAL EXAMINATION GENERAL: He is well developed, well nourished, in no acute distress. VITAL SIGNS: He stands 5 feet 10 inches tall, weighs 195 pounds. Blood pressure is 120/74 and heart rate is 88. HEENT: Normocephalic, atraumatic. NECK: Supple. No palpable lymph nodes. PULMONARY: The lungs are clear to auscultation bilaterally. CARDIO: Regular rate and rhythm. Strong S1, S2. ABDOMEN: Soft, nontender, and nondistended. NEUROLOGICAL: He is alert and oriented x3. MUSCULOSKELETAL: Right lower extremity: The skin is intact. There are no open wounds or abrasions. He walks with an antalgic type gait favoring his right knee. There is a zzhz-mm-zwygbqco right knee effusion. He has some tenderness over the medial and lateral joint line. Range of motion is 5 to 130 degrees of flexion with patellofemoral crepitus. He has a 2+ dorsalis pedis pulse, intact sensation. His lower extremity muscle group strengths are intact at 5/5. ASSESSMENT AND PLAN: Mr. Hernandez is a 67-year-old gentleman with endstage osteoarthritis of the right knee. He has failed conservative treatment and elected to proceed with a right total knee arthroplasty, which is scheduled for 03/28/[address] Sood discussed the risks and benefits of the surgery at today's visit, all of his questions were answered. He will follow up with Dr. Sood 2 weeks after the surgery. TERE BERGER [id number]/[facility] #: [id number] [place]
[~2018-03-28 09:00] MED LIST: Buffered Lidocaine 0.9% SYRIN* 5 ML/SYR SYRINGE INTRADERM ONE; Dexamethasone IV* 4 MG/ML 1 ML (4 MG) IV SLOW PU ONE; Famotidine IV* 10 MG/ML 2 ML (20 mg) IV ONE; Midazolam* 1 MG/ML 2 ML VIAL (2 MG) ONE; Morphine PCA ADULT* 5 MG/ML 30 ML ONE; Tranexamic Acid 1,000 MG in NS 0.9% 50 ML* (outpatient use) IV SCH; fentaNYL* 50 MCG/ML 2 ML VIAL (100 MCG VIAL) ONE
[2018-03-28] MEDS ORDERED: Dexamethasone IV* 4 MG/ML 1 ML (4 MG) ONE (09:40)
[2018-03-28] MEDS ORDERED: ceFAZolin 2 GM PREMIX in ORs 2 GM/50 ML BAG IVPB ONE (09:40)
[2018-03-28] MEDS ORDERED: Famotidine IV* 10 MG/ML 2 ML (20 mg) ONE (09:40)
[2018-03-28] MEDS ORDERED: Buffered Lidocaine 0.9% SYRIN* 5 ML/SYR SYRINGE ONE (09:41)
[2018-03-28] MEDS ORDERED: Bupivacaine 0.25% SDV PF* 10 ML VIAL INJ ONE (10:06)
[2018-03-28] MEDS ORDERED: Bupivacaine 0.5% PF 10 ML VIAL INJ ONE (10:19)
[2018-03-28] MEDS ORDERED: Lidocaine 1%* 5 ML VIAL ONE (10:36)
[2018-03-28] MEDS ORDERED: ROPIVACAINE 5 MG/ML 30 ML BTL (0.5%) ONE (10:37)
[2018-03-28] MEDS ORDERED: Propofol* 10 MG/ML 20 ML BTL ONE ×2 (12:04→12:20)
[2018-03-28] MEDS ORDERED: Lidocaine 2% PF * 5 ML VIAL ONE (12:04)
[2018-03-28] MEDS ORDERED: Bupivacaine-MPF SPINAL* 7.5 MG/ML - 2ML AMP ONE (12:05)
[2018-03-28] MEDS ORDERED: fentaNYL* 50 MCG/ML 2 ML VIAL (100 MCG VIAL) ONE (12:33)
[2018-03-28] MEDS ORDERED: Morphine VIAL* 4 MG/ML VIAL (1 ml vial) IV PRN (12:43)
[2018-03-28] MEDS ORDERED: Ketorolac INJ* 30 MG/ML 1 ML VIAL IV PRN (12:43)
[2018-03-28] MEDS ORDERED: fentaNYL* 50 MCG/ML 2 ML VIAL (100 MCG VIAL) IV PRN (12:43)
[2018-03-28] MEDS ORDERED: Naloxone* 0.4 MG/ML 1 ML VIAL IV PRN (12:43)
[2018-03-28] MEDS ORDERED: oxyCODONE TAB* 5 MG TAB PO PRN (12:43)
[2018-03-28] MEDS ORDERED: diPHENhydraMINE IV* 50 MG/ML 1 ml VIAL (BENADRYL) IV PRN ×2 (12:49→13:55)
[2018-03-28] MEDS ORDERED: Ondansetron INJ* 2 MG/ML VIAL IV PRN ×2 (12:49→13:55)
[2018-03-28] MEDS ORDERED: diPHENhydraMINE PO* 25 MG PO PRN (13:55)
[2018-03-28] MEDS ORDERED: Ondansetron TAB* 4 MG PO PRN (13:55)
[2018-03-28] MEDS ORDERED: Magnesium Hydroxide LIQ* 30 ML UDC PO PRN (13:55)
[2018-03-28] MEDS ORDERED: Bisacodyl SUPP* 10 MG SUPP PR PRN (13:55)
[2018-03-28] MEDS ORDERED: Cyclobenzaprine TAB* 10 MG PO PRN (13:55)
[2018-03-28] MEDS ORDERED: oxyCODONE/Acetamin 5/325 MG* TAB PO PRN (13:55)
[2018-03-28] MEDS ORDERED: Polyethylene Glycol 3350* 17 GM PACKET PO PRN (13:55)
[2018-03-28] MEDS ORDERED: oxyCODONE TAB* 5 MG TAB ONE (14:41)
[2018-03-28] MEDS: traMADol TAB* 50 MG PO PRN (16:14)
[2018-03-28] MEDS: Acetaminophen TAB* 325 MG PO SCH (16:53)
[2018-03-28] MEDS ORDERED: Warfarin TAB(*) 6 MG PO ONE (17:00)
[2018-03-28] MEDS: oxyCODONE/Acetamin 5/325 MG* TAB PO PRN ×2 (17:34→21:36)
[2018-03-28] MEDS: ceFAZolin 1 GM in Dextrose (*) 1 GM/50 ML BAG IVPB SCH (17:35)
[2018-03-28] MEDS: Morphine VIAL* 4 MG/ML VIAL (1 ml vial) IV PRN ×2 (17:49→20:20)
[2018-03-28] MEDS: oxyCODONE TAB* 5 MG TAB PO PRN ×2 (18:30→22:57)
[2018-03-28] MEDS: Docusate CAP* 100 MG PO SCH (20:28)
[2018-03-28] MEDS: Magnesium Hydroxide LIQ* 30 ML UDC PO SCH (20:28)
--- NOTE | 2018-03-29 00:04 | CONS ---
CC: Dr. Cristino Palmer; Dr. Janae Sood * [facility] MEDICINE CONSULTATION REPORT: DATE OF CONSULTATION: 03/28/18. PRIMARY CARE PROVIDER: Dr. Cristino Palmer. REQUESTING PHYSICIAN IN CONSULT: Dr. Janae Sood. ATTENDING PHYSICIAN: Dr. Alecia Vasquez (dictated by Jen Muse NP). REASON FOR CONSULTATION: Co-medical management. HISTORY OF PRESENT ILLNESS: I will refer you to the history and physical dictated by TERE Vega, for complete details, but in short, Mr. Hernandez is a 67-year- old male with past medical history of AFib, GERD, and sleep apnea, who [place] [facility] [place] elective right total knee. He was cleared for surgery by both his primary care provider and his mid level practitioner. The patient reports that he has had right knee pain for years and was subsequently managed with naproxen. He does not have any other significant pain joint pain. He does carry a history of atrial fibrillation for which he has had 6 ablations. The most recent one was in September, and he has not been in atrial fibrillation since that time. He does have a loop record in place and follows with a mid level practitioner at [facility]. He does carry a history of GERD, which is well managed on a PPI. He reports only needing to take additional Pepcid when he eats pizza. He uses a CPAP machine for his sleep apnea and has brought his own CPAP to the hospital with him today. On my exam, he is in his room, short stay surgical unit, and is comfortable. He reports 4/5 back pain and reports right knee discomfort only due to positioning of his leg in bed, though generally is comfortable and offers no other complaints. PAST MEDICAL HISTORY: 1. Atrial fibrillation, status post ablation. 2. GERD. 3. Sleep apnea. PAST SURGICAL HISTORY: 1. Cardiac ablation x6. 2. Shoulder surgery x6. 3. Loop recorder placement. HOME MEDICATIONS: 1. Omeprazole 20 mg p.o. daily. 2. Nortriptyline 50 mg p.o. at bedtime. 3. Naproxen 220 mg 2 tabs p.o. daily. 4. Multivitamin 1 tab p.o. daily. 5. Iron glycinate 28 mg p.o. daily. 6. Aspirin 81 mg p.o. daily. 7. Tylenol PM Extra Strength 2 tabs p.o. at bedtime. ALLERGIES: No known drug allergies. FAMILY HISTORY: The patient denies any family history of diabetes. He reports that both of his parents had hypertension and reports that his father had esophageal cancer, though he was a smoker. His mother additionally had sarcoidosis. SOCIAL HISTORY: The patient denies any current or past tobacco or recreational drug use. He reports approximately 1 glass of wine per day. He lived at home with his and she will be his surrogate decision maker in the event he is unable to make his own decision. REVIEW OF SYSTEMS: An 11-point review of systems was performed and all the pertinent positive and negative findings are in the HPI. All other systems are negative. PHYSICAL EXAM: General: Mr. Hernandez is a well-developed, well-nourished, white male, lying in bed, in no acute distress. He appears his stated age. Vital Signs: Temp 97.3, heart rate 88, respiratory rate 18, oxygen saturation 98% on room air, blood pressure 124/108. HEENT: Head is atraumatic, normocephalic. Visual sanchez are grossly intact. Pupils equal, round, and reactive to light and accommodation. Oral mucous membranes are moist and without lesions. Neck: Full range of motion. Thyroid not palpable. Trachea midline. No lymphadenopathy. Respiratory: Symmetrical chest expansion. No chest wall deformity. Lungs: Clear to auscultation throughout. No rhonchi, wheezes or rales. Cardiovascular: Regular rate and rhythm. S1, S2 present. No murmurs, rubs or gallops. No JVD. Extremities: Skin warm and smooth bilaterally. No edema. No clubbing or cyanosis. Pedal pulses 2+ bilaterally. Musculoskeletal : Full range of motion to all extremities except for the right lower extremity which was not tested. Abdomen: Soft, nontender to palpation. Bowel sounds normoactive throughout. Neuro: Awake, alert and oriented x4. Cranial nerves II through XII are grossly intact. Sensation intact. Moves all extremities. Skin: There is a surgical dressing in place to the right knee. DIAGNOSTIC STUDIES/LAB DATA: The patient had labs drawn on 03/15/18. WBC 3.9, RBC is 4.66, hemoglobin 15.8, hematocrit 46, platelets 156. INR 0.97. Sodium 142, potassium 3.9, chloride 106, carbon dioxide 31, BUN 15, creatinine 0.9, glucose 98. Total bili 1.3, AST 61, ALT 81, alk phos 84. Urinalysis unremarkable. Chest x-ray on 03/15/18 reads as no evidence for active cardiopulmonary disease. EKG on 03/15/18 is difficult to read due to scanning, though he is in normal sinus rhythm with a rate of 92, QTc 455. ASSESSMENT AND PLAN: Mr. Hernandez is a 67-year-old male with past medical history of atrial fibrillation, gastroesophageal reflux disease, and sleep apnea, who [place] [facility] [place] an elective right total knee. The patient will be admitted inpatient by Orthopedics for: 1. Right total knee arthroscopy. Management will be per Orthopedics. 2. Atrial fibrillation. The patient is in normal sinus rhythm. Has not been in atrial fibrillation since September when he had his last ablation. He does not currently take any medications for his atrial fibrillation and this is stable. 3. Gastroesophageal reflux disease. The patient is well managed on omeprazole. He will be continued on this daily. 4. Obstructive sleep apnea. The patient has brought his own CPAP from home, which he will use while in the hospital. 5. Fluid, electrolytes, and nutrition. Electrolytes do not need repletion at this point. He does not require any fluids. Diet will be regular. 6. Code status. The patient is a full code. 7. DVT prophylaxis. Per Orthopedics. Thank you for this consultation. The patient's chronic diagnoses are well controlled at this time and he does not need any further management from the hospitalist team. We will continue to follow distantly. Please do not hesitate to call with questions. TIME SPENT: Approximately 40 minutes were spent on this consultation, greater than half of that time was spent [id number] with the patient and his obtaining my history, performing my physical exam, and reviewing the plan of care. The case has been reviewed with my attending, Dr. Vasquez, who is in agreement with the plan of care. JEN MUSE, POSTAL SORTING OFFICER [id number]/[facility] #: [id number] DIXON
[2018-03-29] MEDS: Acetaminophen TAB* 325 MG PO SCH ×2 (00:14→08:01)
[2018-03-29] MEDS: ceFAZolin 1 GM in Dextrose (*) 1 GM/50 ML BAG IVPB SCH ×2 (03:25→11:24)
[2018-03-29] MEDS: oxyCODONE TAB* 5 MG TAB PO PRN ×2 (06:01→11:24)
[2018-03-29 06:17] LABS: Hematocrit 38 % (42-52); Hemoglobin 13.4 g/dl (14.0-18.0); Mean Corpuscular HGB Conc 35 g/dl (31-36); Mean Corpuscular Hemoglobin 34 pg (27-31); Mean Corpuscular Volume 97 fL (80-94); Mean Platelet Volume 9.8 fL (7.4-10.4); Platelet Count 115 10^3/ul (150-450); Red Blood Count 3.92 10^6/ul (4.00-5.40); Red Cell Distribution Width 14 % (10.5-15); White Blood Count 5.8 10^3/ul (3.5-10.8)
[2018-03-29 06:34] LABS: EGFR Non-African American 94.8 (>60)
[2018-03-29 06:36] LABS: INR 1.01 (0.77-1.02)
[2018-03-29] MEDS ORDERED: Omeprazole CAP* 20 MG PO SCH (07:30)
[2018-03-29] MEDS: Docusate CAP* 100 MG PO SCH (08:01)
[2018-03-29] MEDS: Magnesium Hydroxide LIQ* 30 ML UDC PO SCH (08:02)
[2018-03-29] MEDS: traMADol TAB* 50 MG PO PRN (08:37)
--- NOTE | 2018-03-29 10:02 | PN ---
Progress Note - Progress Note Date of Service: 03/29/18 SOAP: Subjective: [] Patient seen and examined at bedside. He feels well without CP, SOB, dizziness, nausea. RLE pain is well controlled. He has met his goals with physical therapy and desires DC home. Objective: []General: Well appearing, NAD RLE: Dressing changed, incision CDI. Thigh is soft. DF/PF intact. Sensation intact distally, DP2+ Calves supple and nontender without erythema, edema or palpable cords Assessment: []POD 1 sp right total knee replacement Plan: []WBAT PT/OT eliquis 2.5mg po BID for 30 days as he will be discharged today and INR is not yet therapeutic. He has a history of afib with ablation restoring sinus rhythm as of September. DC to home with outpatient services Vital Signs Temp 97.7 F 03/29/18 07:14 Pulse 81 03/29/18 07:14 Resp 18 03/29/18 08:37 BP 130/91 03/29/18 07:14 Pulse Ox 96 03/29/18 07:14 Intake & Output 03/28/18 03/29/18 03/29/18 18:59 06:59 18:59 Intake Total 1450 2135 240 Output Total 3320 650 400 Balance -1870 1485 -160 Weight 194 lb Intake: IV Fluids 1350 980 LR 1350 980 IVPB 55 ABX - CEFAZOLIN 55 Oral 100 1100 240 Output: KAYLENE #1 70 Urine 100 Penn 3000 650 400 Estimated Blood Loss 150 Laboratory Last Values WBC 5.8 10^3/ul (3.5-10.8) 03/29/18 05:50 RBC 3.92 10^6/ul (4.00-5.40) L 03/29/18 05:50 Hgb 13.4 g/dl (14.0-18.0) L 03/29/18 05:50 Hct 38 % (42-52) L 03/29/18 05:50 MCV 97 fL (80-94) H 03/29/18 05:50 MCH 34 pg (27-31) H 03/29/18 05:50 MCHC 35 g/dl (31-36) 03/29/18 05:50 RDW 14 % (10.5-15) 03/29/18 05:50 Plt Count 115 10^3/ul (150-450) L 03/29/18 05:50 MPV 9.8 fL (7.4-10.4) 03/29/18 05:50 INR (Anticoag Therapy) 1.01 (0.77-1.02) 03/29/18 05:50 Sodium 138 mmol/L (135-145) 03/29/18 05:50 Potassium 3.6 mmol/L (3.5-5.0) 03/29/18 05:50 Chloride 103 mmol/L (101-111) 03/29/18 05:50 Carbon Dioxide 30 mmol/L (22-32) 03/29/18 05:50 Anion Gap 5 mmol/L (2-11) 03/29/18 05:50 BUN 13 mg/dL (6-24) 03/29/18 05:50 Creatinine 0.81 mg/dL (0.67-1.17) 03/29/18 05:50 Est GFR ( Amer) 114.7 (>60) 03/29/18 05:50 Est GFR (Non-Af Amer) 94.8 (>60) 03/29/18 05:50 BUN/Creatinine Ratio 16.0 (8-20) 03/29/18 05:50 Glucose 124 mg/dL (70-100) H 03/29/18 05:50 Calcium 9.1 mg/dL (8.6-10.3) 03/29/18 05:50 Magnesium 2.2 mg/dL (1.9-2.7) 03/29/18 05:50
[2018-03-29] MEDS ORDERED: Enoxaparin(*) 40 MG/0.4 ML SYR SUBCUT SCH (12:00)
[2018-03-29 12:09] VITALS: BP 128/82
--- NOTE | 2018-03-30 00:19 | OP ---
DATE OF OPERATION: 03/28/18 - ROOM #347 DATE OF : 48 ATTENDING SURGEON: Janae Sood MD DEPUTY TREASURER: TERE Vega. Ms. Beckham did help throughout the procedure with preparation of the leg, wound retraction, manipulation of the knee, and wound closure. ANESTHESIOLOGIST: Dr. Bell. ANESTHESIA: Spinal. PRE-OP DIAGNOSIS: Severe end-stage degenerative osteoarthritis of the right knee joint. POST-OP DIAGNOSIS: Severe end-stage degenerative osteoarthritis of the right knee joint. OPERATIVE PROCEDURE: Right total knee arthroplasty. COMPLICATIONS: None. TOURNIQUET TIME: 51 minutes. SPECIMEN: Bone and cartilage from the right knee joint sent to Pathology. HARDWARE USED: Cemented [employer] total knee arthroplasty hardware. For the femur, a size 7 right posterior stabilized Legion femoral component, for the tibia, a size 6 right tibial base plate Miryam II. For the insert, a 9-mm posterior stabilized articular insert, size 5/6 and for the patella, a 35- mm 3-peg all poly patella with 7.5 thickness. BRIEF HISTORY/INDICATION: Mr. Hernandez is a 67-year-old gentleman with years of increasingly severe right knee pain. He failed conservative treatment with antiinflammatories, pain medication, and physical therapy. Radiograph showed advanced arthritis. Due to continued pain and decreased quality of life, he elected to undergo right total knee arthroplasty. Informed consent was obtained from the patient. He understood the risks of surgery included but were not limited to bleeding, infection, damage to nearby structures, continued pain, need for further surgery, intraoperative fracture, nerve palsy, hardware failure or loosening, knee stiffness, loss of motion, stroke, heart attack, blood clot, and . He wished to proceed. INTRAOPERATIVE FINDINGS: Intraoperatively, the patient was noted to have complete loss of cartilage in all three compartments. He had extensive osteophyte formation. DESCRIPTION OF PROCEDURE: Mr. Hernandez was identified in the preanesthesia unit. His right lower extremity was marked as the correct operative site. Informed consent was signed and placed in the chart. The patient was taken to the operating room and placed under anesthesia without difficulty. A Penn catheter was placed. Tourniquet was placed on the right thigh. Right lower extremity was prepped and draped in the usual sterile fashion. Preop time-out was made to correctly identify the patient side and site. Appropriate perioperative antibiotics were given within 1 hour of incision. Tourniquet was inflated and total tourniquet time for this procedure was 51 minutes. A midline incision was made with a 10-blade and carried down to the extensor mechanism. A new 10-blade was used to make a standard medial parapatellar arthrotomy. Patella was subluxed laterally. Electrocautery was used to subperiosteally elevate the soft tissue off the superomedial tibia. The knee was flexed up. Anterior horn of the lateral meniscus and ACL were sharply released. A drill was used to enter the distal femur. Intramedullary distal femoral cutting guide was pinned on the distal femur. Oscillating saw was used to make the distal femoral cut. Next, the external rotation guide was pinned on the distal femur. Distal femur was sized to a size 7. Size 7 multi-cutting jig was pinned on the distal femur. Oscillating saw was used to make the appropriate 4- chamfer cuts. The PCL was completely released and the tibia was subluxed anteriorly. Extra-medullary tibial cutting guide was pinned on the proximal tibia. Oscillating saw was used to make a proximal tibial cut perpendicular to mechanical axis of the tibia. The tibial bone was carefully removed. The knee was brought out into full extension. The spacer block had good fit with the knee in full extension. Medial and lateral ligaments were well balanced. Flexion and extension gaps were well balanced. The knee was flexed up. Lamina slab puller was placed both medially and laterally. Any remaining meniscus was carefully removed using electrocautery. A curved osteotome was used to remove any posterior osteophytes. Tibial tray and drop tyler were placed and once again confirmed a satisfactory tibial cut. A size 7 right femoral trial was impacted onto the distal femur and had good fit. The box for the posterior stabilized implant was prepared using a reamer and box cut osteotome. Size 6 tibial trial with a 9-mm insert trial was placed and the knee was taken through a range of motion. The knee had full extension to 130 degrees of flexion. There was good patellofemoral tracking. The patella was everted. 7-mm of patellar bone and cartilage was carefully removed using an oscillating saw. The patella was sized to a size 35. Three peg holes were drilled through the size 35 guide. A trial patella, size 35 with 7.5 thickness was placed and the knee was taken through a range of motion. There was satisfactory patellofemoral tracking. All trials were removed. Tibia was subluxed anteriorly and sized to a size 6. Proximal tibia was prepared using a size 6 keel punch. All bony cut surfaces were copiously irrigated with sterile saline and dried. Final implants were cemented into place starting with the tibia, followed by the femur and last the patella. A 9- mm insert trial was placed and the knee was brought out into full extension. Tourniquet was turned down at 51 minutes. The knee was copiously irrigated with sterile saline. Electrocautery was used to obtain meticulous hemostasis. Once the cement had fully cured, the insert trial was removed. Any excess cement was removed from around the capsule and hardware. Final insert chosen was a 9-mm posterior stabilized articular insert, size 5/6. This was locked into position on the tibial tray without difficulty. Stability of the insert was checked and rechecked and noted to be stable. The knee was copiously irrigated with sterile saline once again. The extensor mechanism was closed using interrupted #1 Vicryls. The rest of the incision was closed in a layered fashion using 0 and 2-0 Vicryls. The skin was closed using running 3-0 nylon suture. Sterile Xeroform, 4x4s, and Webril were used to cover the incision. Jc wrap and cold pack were placed over this. The patient's anesthesia was reversed without difficulty. He was taken to the PACU in stable condition. Intended weightbearing will be weightbearing as tolerated. Intended DVT prophylaxis will be Coumadin with a Lovenox bridge. [id number]/[facility] #: [id number] [place]
--- NOTE | 2018-03-30 08:58 | DS ---
AMENDED REPORT NOW INCLUDES DESIGNATED COSIGNER DISCHARGE SUMMARY: DATE OF ADMISSION: 03/28/18 DATE OF DISCHARGE: 03/29/18 ATTENDING PROVIDER AND SURGEON: Dr. Janae Sood.* (DICTATED BY TERE SCOTT) OPERATIVE PROCEDURE: Right total knee arthroplasty. HISTORY: Mr. Hernandez is a 67-year-old gentleman with end-stage osteoarthritis of the right knee. He failed conservative treatment and elected to undergo a right total knee arthroplasty. HOSPITAL COURSE: The patient was admitted to [facility] on . He underwent a right total knee arthroplasty without complication. Postop day 1, he was well appearing, in no acute distress. His incision was clean, dry , and intact without any erythema or edema. Dorsiflexion and plantarflexion intact. Sensation intact distally. Dorsalis pedis pulse 2+. Due to discharged on postop day 1, he has not reached a therapeutic INR. He does have history of AFib. Bridger has been in sinus rhythm since September. Due to this, he will be on Eliquis 2.5 mg p.o. b.i.d. for 30 days. At discharge, vital signs, temperature 97.7, pulse 81, respiratory rate 18, blood pressure 130/91, pulse ox 96. Hemoglobin 13.4, hematocrit 38. INR 1.01. DISCHARGE MEDICATIONS: 1. Omeprazole 20 mg p.o. q.a.m. 2. Aspirin 81 mg p.o. q.a.m. 3. Nortriptyline 50 mg p.o. bedtime. 4. Naproxen was discontinued to home. 5. Iron glycinate 28 mg p.o. q.a.m. 6. Centrum Silver men 1 tab p.o. q.p.m. 7. Tylenol extra strength tablet or Tylenol 975 mg p.o. q.8 hours. Please do not exceed 4000 mg of acetaminophen from all sources in a day. 8. Eliquis 2.5 mg p.o. q.12 hours for 30 days. 9. Percocet 5/325 one to 2 tabs every 4 to 6 hours as needed for pain, max daily dose of 10. DISCHARGE PLAN: The patient will be weightbearing as tolerated. He will be discharged to home. DVT prophylaxis is Eliquis 2.5 mg every 12 hours for 30 days. Pain control with Percocet 5/325 mg 1 to 2 tabs every 4 to 6 hours as needed for pain, max daily dose of 10. Follow up with Dr. Sood in 10 to 14 days. TERE FRIEDMAN [id number]/[facility] #: [id number] [place]
== END 2018-03-29 13:50 | disposition home or self-care (01) | DRG 470 ==
LOC: AA 09:11 → SSU 15:37
PROVIDERS: ADMIT Orthopaedic Surgery Adult Reconstructive Orthopaedic Surgery; ATTEND Orthopaedic Surgery Adult Reconstructive Orthopaedic Surgery
PROC: 0SRC069 Replacement of Right Knee Joint with Oxidized Zirconium on Polyethylene Synthetic Substitute, Cemented, Open Approach (ICD-10-PCS; principal; 2018-03-28 11:00)
DX: M17.11 Unilateral primary osteoarthritis, right knee (principal); K21.9 Gastro-esophageal reflux disease without esophagitis; M25.461 Effusion, right knee; I48.91 Unspecified atrial fibrillation; R26.89 Other abnormalities of gait and mobility; G47.33 Obstructive sleep apnea (adult) (pediatric); G43.909 Migraine, unspecified, not intractable, without status migrainosus; G89.29 Other chronic pain; M54.5 Low back pain; M25.761 Osteophyte, right knee; Z79.899 Other long term (current) drug therapy; Z84.89 Family history of other specified conditions; Z72.89 Other problems related to lifestyle; Z95.818 Presence of other cardiac implants and grafts; Z80.0 Family history of malignant neoplasm of digestive organs; Z82.49 Family history of ischemic heart disease and other diseases of the circulatory system; Z79.82 Long term (current) use of aspirin
CPT/HCPCS: 36415; 80048; 83735; 85027; 85610; 88305; 88311; A9270-GY; C1776; G8978-GP-CL; G8979-GP-CI; G8987-GO-CI; G8988-GO-CI; G8989-GO-CI; J0690; J1100; J1650; J2250; J2270; J2405; J2704; J2795; J3010; J3490

== ENCOUNTER 2024-03-27 13:17 | Observation (INO) ==
[~2024-03-27 13:17] MED LIST changes: -Buffered Lidocaine 0.9% SYRIN* 5 ML/SYR SYRINGE INTRADERM ONE; -Dexamethasone IV* 4 MG/ML 1 ML (4 MG) IV SLOW PU ONE; -Famotidine IV* 10 MG/ML 2 ML (20 mg) IV ONE; +HYDROmorphone 1 MG/1 ML SYRINGE IV PRN; -Midazolam* 1 MG/ML 2 ML VIAL (2 MG) ONE; -Morphine PCA ADULT* 5 MG/ML 30 ML ONE; +Naloxone 0.4 mg VIAL 0.4 mg/ml 1 ml VIAL IV PRN; +Ondansetron 4 mg VIAL 2 MG/ML 2 ml VIAL IV PRN; -Tranexamic Acid 1,000 MG in NS 0.9% 50 ML* (outpatient use) IV SCH; +fentaNYL 100 mcg/2 ml 50 MCG/ML VIAL IV PRN; -fentaNYL* 50 MCG/ML 2 ML VIAL (100 MCG VIAL) ONE
[2024-03-27 14:00] LABS: Rapid COVID-19 Molecular Undetected (Undetected)
[2024-03-27] MEDS ORDERED: Propofol 10 MG/ML 20 ML BTL ONE ×2 (14:05→15:22)
[2024-03-27] MEDS ORDERED: Midazolam 2 mg/2 ml VIAL 1 mg/ml 2 ml VIAL (2 mg) ONE ×2 (14:05→15:40)
[2024-03-27] MEDS ORDERED: Lidocaine 2% PF 5 ML VIAL ONE (14:05)
[2024-03-27] MEDS ORDERED: fentaNYL 100 mcg/2 ml 50 MCG/ML VIAL ONE (14:05)
[2024-03-27] MEDS ORDERED: Tranexamic Acid 1 GM/100ML BAG 2,000 MG/200 ML BAG IV ONE (14:12)
[2024-03-27] MEDS ORDERED: ceFAZolin 2 GM PREMIX 2 GM/50 ML BAG ONE (14:12)
[2024-03-27] MEDS: Lactated Ringers 1000 ml BAG 1,000 ML IV SCH ×2 (14:15→21:06)
[2024-03-27] MEDS: Buffered Lidocaine 1% SYRIN 1 ml INTRADERM ONE (14:15)
[2024-03-27] MEDS: Scopolamine 1 mg/72hr PATCH TRANSDERM ONE (14:16)
[2024-03-27] MEDS ORDERED: Bupivacaine 0.5% SDV PF 30ML VIAL ONE (15:27)
[2024-03-27] MEDS ORDERED: Dexamethasone IV 4 MG/ML VIAL 1 ml VIAL ONE ×2 (15:27→17:11)
[2024-03-27] MEDS ORDERED: ROPIVACAINE 5 MG/ML 30 ML BTL (0.5%) ONE (15:48)
[2024-03-27] MEDS ORDERED: Magnesium Hydroxide LIQ 30 ML UDC PO PRN (16:00)
[2024-03-27] MEDS ORDERED: Ondansetron ODT 4 mg TAB 4 MG TAB PO PRN (16:00)
[2024-03-27] MEDS ORDERED: Ondansetron 4 mg VIAL 2 MG/ML 2 ml VIAL IV PRN (16:00)
[2024-03-27] MEDS ORDERED: Calcium Carb (TUMS) 500 mg CHEW TAB PO PRN (16:00)
[2024-03-27] MEDS ORDERED: Lactulose 30 ml UDC PO PRN (16:00)
[2024-03-27] MEDS ORDERED: KETAMINE HCL 10 MG/ML 20 ml VIAL (200 MG) ONE (16:46)
[2024-03-27] MEDS ORDERED: Glycopyrrolate IV 0.2 MG/ML 1 ML VIAL ONE (16:47)
[2024-03-27] MEDS ORDERED: Ondansetron 4 mg VIAL 2 MG/ML 2 ml VIAL ONE (17:11)
[2024-03-27] MEDS: Morphine 2 MG/ML SYRINGE IV PRN (22:48)
[2024-03-28] MEDS: ceFAZolin 2 GM PREMIX 2 GM/50 ML BAG IV SCH (00:06)
[2024-03-28] MEDS: Magnesium Hydroxide LIQ 30 ML UDC PO SCH (00:43)
[2024-03-28 06:51] LABS: Creatinine, Serum 0.92 mg/dL (0.67-1.17); Potassium 4.1 mmol/L (3.5-5.0); eGFR CKD-EPI 87.3 (>60)
[2024-03-28 07:03] LABS: Hematocrit 38.7 % (38-53); Hemoglobin 13.5 g/dL (13.2-16.3); Mean Platelet Volume 9.1 fL (7.5-11.2); Platelet Count 172 10^3/uL (150-450)
[2024-03-28] MEDS: Acetaminophen IV 1 GM/100ML 1,000 MG/100 ML BAG IV ONE (07:05)
[2024-03-28] MEDS: Vitamin THERAPEUTIC TAB PO SCH (08:09)
[2024-03-28 10:19] VITALS: BP 151/94
== END 2024-03-28 10:45 | disposition home or self-care (01) ==
LOC: SSU 13:17 → OR 13:17
PROVIDERS: ADMIT Orthopaedic Surgery Adult Reconstructive Orthopaedic Surgery; ATTEND Orthopaedic Surgery Adult Reconstructive Orthopaedic Surgery